=== PATIENT | female | born 1980 | race Caucasian/White ===

== ENCOUNTER 2017-04-28 18:25 | Inpatient (IN) | payer OTHER ==
[~2017-04-28] VITALS: Ht 160 cm; Wt 66.2 kg
[2017-04-28 20:45] VITALS: Ht 160 cm; Wt 66.2 kg
[2017-04-28 21:04] VITALS: BP 119/59; RESP 18
[2017-04-28] MEDS: HYDROCODONE/APAP (5/325) TAB PO PRN (21:21)
[2017-04-28] MEDS: SOD CHLORIDE 0.9% 1,000 ML IV SCH (21:22)
[2017-04-28] MEDS: CEFTRIAXONE 1 GM/50 ML (PMX) 50 ML IVPB SCH (21:22)
[2017-04-28 22:52] VITALS: PULSE 116
[2017-04-28] MEDS: ACETAMINOPHEN 325 MG TAB PO PRN (23:18)
[2017-04-29 02:46] VITALS: BP 99/54; RESP 18
[2017-04-29] MEDS: HYDROCODONE/APAP (5/325) TAB PO PRN ×2 (03:04→11:02)
[2017-04-29] MEDS: PANTOPRAZOLE 40 MG INJ IV SCH (05:19)
[2017-04-29 06:54] LABS: BASOPHILS % 0.1 % (0.0-2.0); EOSINOPHILS % 0.2 % (0.0-7.0); HEMOGLOBIN 10.6 g/dl (12.0-16.0); LYMPHOCYTES # 2.4 10^3/ul (0.8-2.9); LYMPHOCYTES % 23.3 % (15.0-51.0); MEAN CORPUSCULAR HEMOGLOBIN 30.9 pg (29.0-33.0); MEAN CORPUSCULAR HGB CONC 33.1 g/dl (32.0-37.0); MEAN CORPUSCULAR VOLUME 93.3 fl (82.0-101.0); MEAN PLATELET VOLUME 9.2 fl (7.4-10.4); NEUTROPHIL # 6.8 10^3/ul (1.6-7.5); NEUTROPHILS % 66.1 % (39.0-77.0); PLATELET COUNT 470 10^3/UL (140-415); RED BLOOD COUNT 3.43 10^6/ul (4.20-5.40); RED CELL DISTRIBUTION WIDTH 13.2 % (11.5-14.5); WHITE BLOOD COUNT 10.3 10^3/ul (4.8-10.8)
[2017-04-29 07:25] LABS: CREATININE 0.49 mg/dl (0.44-1.00); POTASSIUM 4.1 mmol/L (3.5-5.1)
[2017-04-29 07:30] VITALS: BP 98/52; RESP 18
[2017-04-29] MEDS: ACETAMINOPHEN 325 MG TAB PO PRN ×2 (07:43→16:03)
[2017-04-29 09:43] VITALS: PULSE 113
--- NOTE | 2017-04-29 09:48 | HP ---
Date/Time of Note Date/Time of Note DATE: 04/29/17 TIME: 09:35 Assessment/Plan VTE Prophylaxis VTE Prophylaxis Intervention: ambulation Lines/Catheters IV Catheter Type (from Nrs): Peripheral IV Assessment/Plan Chief Complaint/Hosp Course 1. Complex thyroid mass: left thyroid lobe with 3.6x2.2x3.3 cm mass, s/p biopsy on 04/15/2017 2. Thyrotoxicosis. T4 2.13, TSH below 0.01 3. neck pain 4. tachycardia Problems: Assessment/Plan 1. Pain control 2. Sepsis protocol was obtained in [facility], blood culture drawn, but not available. ordered. lactic acid ordered for tomorrow 3. Obtain thyroid biopsy results HPI/ROS Admit Date/Time Admit Date/Time Apr 28, 2017 at 20:18 Hx of Present Illness pt was transferred to [facility] on 04/28/2017 from [facility]. Per medical record from [facility] patient showed up on 04/28 17 with c/o swelling of left lower anterior neck starting 04/26. She reported pain 6/10 in rest, able to move her neck. Reported SOB and difficulty swallowing. Pt reported fever and chills. Positive for Thyroid biopsy on 04/15/2017. Blood culture and US neck was obtained ROS Constitutional: chills Eyes: no complaints ENT: dysphagia Respiratory: cough, no complaints, other, pain, pleuritic pain, shortness of breath (yesterday in ER), sputum, wheezing Cardiovascular: no complaints Gastrointestinal: constipation, no complaints, No blood, No decreased appetite, No diarrhea, No flatus, No nausea, No other , No pain, No passing stool, No vomiting Genitourinary: no complaints Musculoskeletal: no complaints Skin: no complaints Lymphatic: no complaints PMH/Family/Social Past Medical History Past Surgical History Past Surgical Hx: other (C section, Thyroid biopsy, tracheostomy tube placement in infancy) Family History Significant Family History: no pertinent family hx Social History Alcohol Use: occasionally Smoking Status: Never smoker Drug Use: none Exam/Review of Systems Vital Signs Vitals Vital Signs Date Time Temp Pulse Resp B/P Pulse Ox O2 Delivery O2 Flow Rate FiO2 04/29/17 07:30 100.9 109 18 98/52 96 Intake and Output 04/28/17 04/28/17 04/29/17 15:00 23:00 07:00 Intake Total 50 ml 1205 ml Balance 50 ml 1205 ml Exam Constitutional: alert, oriented Psych: no complaints Head: normocephalic Eyes: nl conjunctiva ENMT: nl external ears & nose, nl lips & teeth, nl nasal mucosa & septum Neck: jvd, masses, nuchal rigidity, thyromegaly Respiratory: clear to auscultation Cardiovascular: regular rate and rhythm Gastrointestinal: soft Labs Result Diagram: 04/29/1754604/29/17546 Medications Medications Current Medications Sodium Chloride (NS) 1,000 ml @ 75 mls/hr [id number] IV Last administered on 04/28 21:22; Admin Dose 75 MLS/HR; Start 04/28/17 at 21:00 Pantoprazole (Protonix Iv) 40 mg DAILY@06 IV Last administered on 04/29/17 05: 19; Admin Dose 40 MG; Start 04/29/17 at 06:00 Acetaminophen (Tylenol Tab) 650 mg Q6H PRN PO PAIN AND OR ELEVATED TEMP Last administered on 04/29/17 07:43; Admin Dose 650 MG; Start 04/28/17 at 21:00 Acetaminophen/ Hydrocodone Bitart 1 tab 1 tab Q6H PRN PO PAIN Last administered on 04/29/17 03:04; Admin Dose 1 TAB; Start 04/28/17 at 21:00 Ceftriaxone Sodium (Rocephin) 50 ml @ 100 mls/hr Q24H IVPB Last administered on 04/28/17 21:22; Admin Dose 100 MLS/HR; Start 04/28/17 at 21:00 JOHN CUNNINGHAM Apr 29, 2017 09:46
[2017-04-29] MEDS: SOD CHLORIDE 0.9% 1,000 ML IV SCH ×2 (10:52→23:40)
[2017-04-29] MEDS ORDERED: METH10TA5 PO (12:22)
[2017-04-29] MEDS: ONDANSETRON 4 MG INJ IV PRN ×2 (13:18→19:14)
[2017-04-29] MEDS: morphine 2 MG INJ IV PRN ×3 (13:18→21:49)
[2017-04-29 14:09] VITALS: BP_SYST 110; BP_SYST 123; BP_DIAS 60; BP_DIAS 62; RESP 16; RESP 18
--- NOTE | 2017-04-29 19:36 | CONS ---
Date/Time of Note Date/Time of Note DATE: 04/29/17 TIME: 19:36 Assessment/Plan Assessment/Plan Chief Complaint/Hosp Course 1. Complex thyroid lesion (mass vs hematoma vs other - left 3.6x2.2x3.3 cm), s/ p biopsy on 04/15/2017 -obtain path -ct with contrast -ent consult 2. Thyrotoxicosis. T4 2.13, TSH below 0.01 -endocrine optimization and treatment -fluids -pain control -anti-inflammatory 3. Neck pain, dysphagia, sob ? 2nd #1 -as above 4. Tachycardia 2nd above ? infection -as above -abx 5. Anemia -monitor Thank you very much for consulting me in this patient's care, Problems: Consultation Date/Type/Reason Admit Date/Time Apr 28, 2017 at 20:18 Date of Consultation: Apr 29, 2017 Type of Consultation: Gen Surgical Reason for Consultation Thyroid ? hematoma s/p bx Dysphagia Referring Provider: THAO ARREDONDO MD Hx of Present Illness Tomeka Kim is a 37yo female who had a thyroid fna on 04/20 and subsequently developed a swelling at the biopsy site with some dysphagia and min sob. She reported to [facility] and was subsequently transferred here due to insurance capitation. She reports fevers & chills. No cp. No csz, rash, nausea, vomiting, bloating, blood per mouth or rectum. No dysuria. No change in bowel habits. No cobb/dizziness/visual or neuro changes. Surgical consult is obtained for further evaluation and treatment. Eyes: no complaints ENT: dysphagia, pain, sore throat, No congestion, No discharge Respiratory: cough, no complaints, other, pain, pleuritic pain, shortness of breath (yesterday in ER), sputum, wheezing Cardiovascular: no complaints Gastrointestinal: constipation, no complaints, No blood, No decreased appetite, No diarrhea, No flatus, No nausea, No other , No pain, No passing stool, No vomiting Genitourinary: no complaints Musculoskeletal: no complaints Skin: no complaints Neurologic: no complaints Endocrine: no complaints Lymphatic: no complaints Psychological: no complaints Immunologic: no complaints Past Medical History Thyroid nodule Thyroiditis/thyrotoxicosis Fevers Tachycardia Respiratory compromise in childhood Dysphagia Shortness of breath Anemia Past Surgical History C section Thyroid biopsy 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 Family History Significant Family History: no pertinent family hx Social History Alcohol Use: occasionally Smoking Status: Never smoker Drug Use: none Exam/Review of Systems Vital Signs Vitals Vital Signs Date Time Temp Pulse Resp B/P Pulse Ox O2 Delivery O2 Flow Rate FiO2 04/29/17 14:09 97.9 117 18 110/62 99 04/29/17 09:43 Room Air Intake and Output 04/28/17 04/28/17 04/29/17 15:00 23:00 07:00 Intake Total 50 ml 1205 ml Balance 50 ml 1205 ml Exam Constitutional: alert, oriented, No distress Psych: anxiety Head: atraumatic, normocephalic, No hematomas, No lacerations Eyes: EOMI, PERRL, nl conjunctiva, No icteric ENMT: mucosa pink and moist, nl external ears & nose, nl lips & teeth Neck: jvd, supple, thyromegaly (on left with nodule/lesion) Respiratory: normal air movement, No congested cough, No labored breathing, No wheezing Cardiovascular: No edema, No regular rate and rhythm Gastrointestinal: non-tender, soft, No distended, No rebound or guarding Musculoskeletal: nl extremities to inspection, No joint tenderness Extremities: normal pulses, No calf tenderness, No cyanosis, No edema Neurological: nl mental status, nl speech, nl strength, No confused Skin: No diaphoresis, No ecchymosis, No laceration, No rash or lesions Lymph: nl lymph nodes, nontender Results Result Diagram: 04/29/17 0547 04/29/17 0547 Results 24 hrs Laboratory Tests Test 04/29/17 05:47 White Blood Count 10.3 Red Blood Count 3.43 L Hemoglobin 10.6 L Hematocrit 32.0 L Mean Corpuscular Volume 93.3 Mean Corpuscular Hemoglobin 30.9 Mean Corpuscular Hemoglobin Concent 33.1 Red Cell Distribution Width 13.2 Platelet Count 470 H Mean Platelet Volume 9.2 Neutrophils % 66.1 Lymphocytes % 23.3 Monocytes % 10.0 Eosinophils % 0.2 Basophils % 0.1 Nucleated Red Blood Cells % 0.0 Neutrophils # 6.8 Lymphocytes # 2.4 Monocytes # 1.0 H Eosinophils # 0.0 Basophils # 0.0 Nucleated Red Blood Cells # 0.0 Sodium Level 138 Potassium Level 4.1 Chloride Level 108 Carbon Dioxide Level 23 Anion Gap 11 Blood Urea Nitrogen 6 L Creatinine 0.49 Glucose Level 127 Calcium Level 9.0 Medications Medications Current Medications Sodium Chloride (NS) 1,000 ml @ 75 mls/hr [id number] IV Last administered on 04/29 10:52; Admin Dose 75 MLS/HR; Start 04/28/17 at 21:00 Pantoprazole (Protonix Iv) 40 mg DAILY@06 IV Last administered on 04/29/17 05: 19; Admin Dose 40 MG; Start 04/29/17 at 06:00 Acetaminophen (Tylenol Tab) 650 mg Q6H PRN PO PAIN AND OR ELEVATED TEMP Last administered on 04/29/17 16:03; Admin Dose 650 MG; Start 04/28/17 at 21:00 Acetaminophen/ Hydrocodone Bitart 1 tab 1 tab Q6H PRN PO PAIN Last administered on 04/29/17 11:02; Admin Dose 1 TAB; Start 04/28/17 at 21:00 Ceftriaxone Sodium (Rocephin) 50 ml @ 100 mls/hr Q24H IVPB Last administered on 04/28/17 21:22; Admin Dose 100 MLS/HR; Start 04/28/17 at 21:00 Ondansetron HCl (Zofran Inj) 4 mg Q6H PRN IV NAUSEA AND/OR VOMITING Last administered on 04/29/17 19:14; Admin Dose 4 MG; Start 04/29/17 at 13:30 Morphine Sulfate (morphine) 2 mg Q4H PRN IV PAIN Last administered on 17:47; Admin Dose 2 MG; Start 04/29/17 at 13:30 Methimazole (Tapazole) 10 mg DAILY@21 PO ; Start 04/29/17 at 21:00 YASMANI HERNANDEZ MD Apr 29, 2017 19:36
[2017-04-29 20:32] VITALS: BP 111/57; RESP 18
[2017-04-29] MEDS: CEFTRIAXONE 1 GM/50 ML (PMX) 50 ML IVPB SCH (21:24)
[2017-04-29] MEDS: METHIMAZOLE 5 MG TAB PO SCH (21:24)
[2017-04-29] MEDS: ZOLPIDEM 5 MG TAB PO PRN (23:30)
[2017-04-30] MEDS: ACETAMINOPHEN 325 MG TAB PO PRN ×3 (00:37→14:15)
[2017-04-30] MEDS: SOD CHLORIDE 0.9% 1,000 ML IV SCH ×2 (00:39→17:50)
[2017-04-30] MEDS: PANTOPRAZOLE 40 MG INJ IV SCH (05:01)
[2017-04-30] MEDS: morphine 2 MG INJ IV PRN (06:12)
[2017-04-30] MEDS: ONDANSETRON 4 MG INJ IV PRN (06:12)
[2017-04-30 06:29] LABS: BASOPHILS % 0.2 % (0.0-2.0); EOSINOPHILS % 0.5 % (0.0-7.0); HEMATOCRIT 31.7 % (37.0-47.0); HEMOGLOBIN 10.5 g/dl (12.0-16.0); LYMPHOCYTES # 2.4 10^3/ul (0.8-2.9); LYMPHOCYTES % 27.8 % (15.0-51.0); MEAN CORPUSCULAR HEMOGLOBIN 31.1 pg (29.0-33.0); MEAN CORPUSCULAR HGB CONC 33.1 g/dl (32.0-37.0); MEAN CORPUSCULAR VOLUME 93.8 fl (82.0-101.0); MEAN PLATELET VOLUME 9.1 fl (7.4-10.4); MONOCYTES % 11.4 % (0.0-11.0); NEUTROPHIL # 5.2 10^3/ul (1.6-7.5); NEUTROPHILS % 59.8 % (39.0-77.0); PLATELET COUNT 505 10^3/UL (140-415); RED BLOOD COUNT 3.38 10^6/ul (4.20-5.40); RED CELL DISTRIBUTION WIDTH 12.9 % (11.5-14.5); WHITE BLOOD COUNT 8.7 10^3/ul (4.8-10.8)
[2017-04-30 07:09] LABS: CALCIUM 9.6 mg/dl (8.4-10.2); CREATININE 0.52 mg/dl (0.44-1.00); POTASSIUM 4.9 mmol/L (3.5-5.1)
[2017-04-30 07:26] LABS: T3 UPTAKE 48.4 % (23.5-40.5)
[2017-04-30 08:15] VITALS: BP 119/60; RESP 20
--- NOTE | 2017-04-30 12:13 | PN ---
Date/Time of Note Date/Time of Note DATE: 04/30/17 TIME: 12:10 Assessment/Plan VTE Prophylaxis VTE Prophylaxis Intervention: ambulation Lines/Catheters IV Catheter Type (from Nrs): Peripheral IV Urinary Cath still in place: No Assessment/Plan Chief Complaint/Hosp Course 1. Complex thyroid mass: left thyroid lobe with 3.6x2.2x3.3 cm mass, s/p biopsy on 04/15/2017 2. Thyrotoxicosis. T4 2.13, TSH below 0.01 3. neck pain 4. tachycardia Problems: Assessment/Plan 1. Continue pain control 2. Med records were requested to find the pathology of thyroid mass 3. Antithyroid meds are started Subjective 24 Hr Interval Summary Free Text/Dictation pt reported no change in pain in neck ENT: pain (02/21) Exam/Review of Systems Vital Signs Vitals Vital Signs Date Time Temp Pulse Resp B/P Pulse Ox O2 Delivery O2 Flow Rate FiO2 04/30/17 08:15 98.0 109 20 119/60 98 04/29/17 09:43 Room Air Intake and Output 04/29/17 04/29/17 04/30/17 15:00 23:00 07:00 Intake Total 450 ml 1325 ml 1980 ml Balance 450 ml 1325 ml 1980 ml Exam Constitutional: alert, oriented Neck: thyromegaly Respiratory: clear to auscultation Cardiovascular: regular rate and rhythm Results Result Diagram: 04/30/17 0558 04/30/17 0558 Results 24 hrs Laboratory Tests Test 04/30/17 05:58 White Blood Count 8.7 Red Blood Count 3.38 L Hemoglobin 10.5 L Hematocrit 31.7 L Mean Corpuscular Volume 93.8 Mean Corpuscular Hemoglobin 31.1 Mean Corpuscular Hemoglobin Concent 33.1 Red Cell Distribution Width 12.9 Platelet Count 505 H Mean Platelet Volume 9.1 Neutrophils % 59.8 Lymphocytes % 27.8 Monocytes % 11.4 H Eosinophils % 0.5 Basophils % 0.2 Nucleated Red Blood Cells % 0.0 Neutrophils # 5.2 Lymphocytes # 2.4 Monocytes # 1.0 H Eosinophils # 0.0 Basophils # 0.0 Nucleated Red Blood Cells # 0.0 Sodium Level 138 Potassium Level 4.9 Chloride Level 108 Carbon Dioxide Level 24 Anion Gap 11 Blood Urea Nitrogen 8 Creatinine 0.52 Glucose Level 118 Lactic Acid Level 1.4 Calcium Level 9.6 Free Thyroxine Index 6.05 H Thyroxine (T4) 12.5 H Triiodothyronine (T3) Uptake 48.4 H Medications Medications Current Medications Sodium Chloride (NS) 1,000 ml @ 75 mls/hr [id number] IV Last administered on 04/30 00:39; Admin Dose 75 MLS/HR; Start 04/28/17 at 21:00 Pantoprazole (Protonix Iv) 40 mg DAILY@06 IV Last administered on 04/30/17 05: 01; Admin Dose 40 MG; Start 04/29/17 at 06:00 Acetaminophen (Tylenol Tab) 650 mg Q6H PRN PO PAIN AND OR ELEVATED TEMP Last administered on 04/30/17 08:05; Admin Dose 650 MG; Start 04/28/17 at 21:00 Acetaminophen/ Hydrocodone Bitart 1 tab 1 tab Q6H PRN PO PAIN Last administered on 04/29/17 11:02; Admin Dose 1 TAB; Start 04/28/17 at 21:00 Ceftriaxone Sodium (Rocephin) 50 ml @ 100 mls/hr Q24H IVPB Last administered on 04/29/17 21:24; Admin Dose 100 MLS/HR; Start 04/28/17 at 21:00 Ondansetron HCl (Zofran Inj) 4 mg Q6H PRN IV NAUSEA AND/OR VOMITING Last administered on 04/30/17 06:12; Admin Dose 4 MG; Start 04/29/17 at 13:30 Methimazole (Tapazole) 10 mg DAILY@21 PO Last administered on 04/29/17 21:24; Admin Dose 10 MG; Start 04/29/17 at 21:00 Zolpidem Tartrate (Ambien) 5 mg HS PRN PO INSOMNIA Last administered on 23:30; Admin Dose 5 MG; Start 04/29/17 at 23:30 Hydromorphone HCl (Dilaudid) 0.5 mg Q4H PRN IV PAIN; Start 04/30/17 at 11:30 Metoclopramide HCl (Reglan) 10 mg Q8H PRN IV NAUSEA AND/OR VOMITING; Start at 11:30 JOHN CUNNINGHAM Apr 30, 2017 12:13
[2017-04-30] MEDS: HYDROmorphONE 1 MG/ML SYG IV PRN ×3 (12:23→20:39)
[2017-04-30 14:00] VITALS: BP 116/63; RESP 20
--- NOTE | 2017-04-30 14:04 | PN ---
Date/Time of Note Date/Time of Note DATE: 04/30/17 TIME: 14:02 Assessment/Plan Lines/Catheters IV Catheter Type (from [facility]): Peripheral IV Tristan in Place (from [facility]): No Assessment/Plan Chief Complaint/Hosp Course 1. Complex thyroid lesion (mass vs hematoma vs other - left 3.6x2.2x3.3 cm), s/ p biopsy on 04/15/2017 -obtain path -ct with contrast pending -ent consult 2. Thyrotoxicosis. T4 2.13, TSH below 0.01 -endocrine optimization and treatment -fluids -pain control -anti-inflammatory 3. Neck pain, dysphagia, sob ? 2nd #1 -as above 4. Tachycardia 2nd above ? infection -as above -abx 5. Anemia -monitor Thank you, Problems: Subjective 24 Hr Interval Summary Some dysphagia and min sob. Fevers & chills improving. No cp. No sz, rash, nausea, vomiting, bloating, blood per mouth or rectum. No dysuria. No change in bowel habits. No cobb/dizziness/visual or neuro changes. Exam/Review of Systems Vital Signs Vitals Vital Signs Date Time Temp Pulse Resp B/P Pulse Ox O2 Delivery O2 Flow Rate FiO2 05/01/17 07:45 98.0 91 16 106/59 97 04/29/17 09:43 Room Air Intake and Output 04/30/17 04/30/17 05/01/17 15:00 23:00 07:00 Intake Total 1875 ml 1550 ml Balance 1875 ml 1550 ml Exam Free Text/Dictation Constitutional: alert, oriented, No distress Psych: anxious Head: atraumatic, normocephalic, No hematomas, No lacerations Eyes: EOMI, PERRL, nl conjunctiva, No icteric ENMT: mucosa pink and moist, nl external ears & nose, nl lips & teeth Neck: jvd, supple, thyromegaly (on left with nodule/lesion) Respiratory: normal air movement, No congested cough, No labored breathing, No wheezing Cardiovascular: No edema, No regular rate and rhythm Gastrointestinal: non-tender, soft, No distended, No rebound or guarding Musculoskeletal: nl extremities to inspection, No joint tenderness Extremities: normal pulses, No calf tenderness, No cyanosis, No edema Neurological: nl mental status, nl speech, nl strength, No confused Skin: No diaphoresis, No ecchymosis, No laceration, No rash or lesions Lymph: nl lymph nodes, nontender Results Result Diagram: 05/01/17 0516 04/30/17 0558 YASMANI HERNANDEZ MD Apr 30, 2017 14:04
[2017-04-30] MEDS ORDERED: IOHEXOL 300MG/ML 150 ML BTL ONE (16:46)
[2017-04-30] MEDS ORDERED: SOD CHLORIDE 0.9% 100 ML ONE (16:46)
[2017-04-30] MEDS: METOCLOPRAMIDE 10 MG INJ IV PRN (18:26)
[2017-04-30 20:00] VITALS: BP 106/58; RESP 18
[2017-04-30] MEDS: CEFTRIAXONE 1 GM/50 ML (PMX) 50 ML IVPB SCH (20:38)
[2017-04-30] MEDS: METHIMAZOLE 5 MG TAB PO SCH (20:39)
[2017-04-30] MEDS: ZOLPIDEM 5 MG TAB PO PRN (21:55)
--- NOTE | 2017-05-01 00:46 | RADRPT ---
PROCEDURE: CT soft tissue neck with contrast CLINICAL INDICATION: Neck mass. Status post thyroid biopsy TECHNIQUE: A CT of the neck was performed utilizing axial sections from the from the thoracic inle t through the skull base with contrast. Coronal and sagittal images were also reformatted. 80 cc of Omnipaque-300 intravenous contrast was administered. One or more of the following dose reduction saundra hniques were used: Automated exposure control, adjustment of the mA and/or kV according to patient s ize, use of iterative reconstruction technique. The exam CTDI vol = 9.49 mGy and DLP = 241.47 mGy-cm. COMPARISON: None available FINDINGS: Visualized intracranial structures and skull base: The included portions of the cerebral hemispheres and posterior fossa are unremarkable with the fourth ventricle midline. trace mucosal thickening o f the maxillary sinus floors is present. The remaining included paranasal sinuses and mastoid air ce lls are clear Nasopharynx, oropharynx and tongue base: Prominent adenoidal tissue in the nasopharynx is present. T he tonsils and parapharyngeal fat planes are within limits of normal. No nasopharyngeal mass is pre sent. The tongue base is unremarkable. Some dental amalgam artifact limits fine evaluation of thes e regions. Parotid and wind up operator spaces: The glands are normal in size and homogeneous in attenuation without mass or inflammation. The muscles of mastication and temporomandibular joints are normal bilaterall y. Carotid spaces: Mild reactive type jugulodigastric chain lymphadenitis bilaterally slightly greater on the left is present but none of the lymph nodes meet the criteria for adenopathy. No masses or in flammation demonstrated. The vasculature is unremarkable bilaterally. Submandibular and submental spaces: The glands and lymph nodes are within limits of normal. There i s no evidence of calcification. The sublingual space is unremarkable. Posterior triangles: Within the limits of normal bilaterally without adenopathy, mass or inflammatio n. Larynx and infraglottic airway: The epiglottis, aryepiglottic folds, vocal cords and piriform sinus es are unremarkable. No intrinsic tracheal abnormality is demonstrated. Visceral space: Complex cystic septated left thyroid lobe nodule is estimated at for 0.2-0.9 cm. Thi s causes extrinsic effect upon the trachea with deviation of the trachea to the right of midline by 8 mm. There is no contrast extravasation to suggest active bleeding and no hematoma within the visce ral space is present. The cervical esophagus is unremarkable. Supraclavicular fossae: No evidence of adenopathy or mass lesion. Visualized thorax: No evidence of pulmonary infiltrates or superior mediastinal abnormality. Cervical spine: No evidence of fracture, lytic or blastic lesion. The reversal of the normal cervic al lordosis may be from muscle spasm. RPTAT:HJJR IMPRESSION: 1. Left thyroid lobe nodule estimated at 4 cm in greatest dimension presumably the abnormality that underwent recent biopsy according to the provided history but there is no evidence of active bleedin g or hematoma. 2. Extrinsic effect upon the trachea by the left thyroid lobe nodule causes deviation to the right of midline by approximately 8 mm. 3. No additional neck masses are present. There are subtle sub centimeter reactive type of jugulodi gastric chain lymph nodes bilaterally. 4. Incidental prominent adenoidal soft tissues of the nasopharynx possibly adenitis. 5. Minimal chronic-appearing maxillary sinus mucosal thickening. Physician Jb Date Time Electronically viewed and signed by Physician Jb on 05/01/2017 00:46 /
[2017-05-01 02:00] VITALS: BP 104/56; RESP 19
[2017-05-01] MEDS: SOD CHLORIDE 0.9% 1,000 ML IV SCH ×3 (02:12→18:44)
[2017-05-01] MEDS: HYDROmorphONE 1 MG/ML SYG IV PRN ×5 (02:14→20:14)
[2017-05-01] MEDS: ACETAMINOPHEN 325 MG TAB PO PRN ×2 (05:34→12:16)
[2017-05-01] MEDS: PANTOPRAZOLE (EC) 40 MG TAB PO SCH (05:35)
[2017-05-01 06:16] LABS: BASOPHILS % 0.2 % (0.0-2.0); EOSINOPHILS # 0.1 10^3/ul (0.0-0.5); EOSINOPHILS % 0.6 % (0.0-7.0); HEMATOCRIT 28.5 % (37.0-47.0); HEMOGLOBIN 9.3 g/dl (12.0-16.0); LYMPHOCYTES # 2.8 10^3/ul (0.8-2.9); LYMPHOCYTES % 33.8 % (15.0-51.0); MEAN CORPUSCULAR HEMOGLOBIN 30.1 pg (29.0-33.0); MEAN CORPUSCULAR HGB CONC 32.6 g/dl (32.0-37.0); MEAN CORPUSCULAR VOLUME 92.2 fl (82.0-101.0); MEAN PLATELET VOLUME 9.3 fl (7.4-10.4); MONOCYTE # 0.6 10^3/ul (0.3-0.9); MONOCYTES % 7.3 % (0.0-11.0); NEUTROPHIL # 4.8 10^3/ul (1.6-7.5); NEUTROPHILS % 57.9 % (39.0-77.0); PLATELET COUNT 510 10^3/UL (140-415); RED BLOOD COUNT 3.09 10^6/ul (4.20-5.40); RED CELL DISTRIBUTION WIDTH 12.9 % (11.5-14.5); WHITE BLOOD COUNT 8.4 10^3/ul (4.8-10.8)
[2017-05-01 07:45] VITALS: BP 106/59; RESP 16
[2017-05-01] MEDS ORDERED: METHIMAZOLE 5 MG TAB PO SCH (09:00)
[2017-05-01] MEDS ORDERED: PROPRANOLOL 10 MG TAB PO SCH (09:00)
[2017-05-01] MEDS: ONDANSETRON 4 MG INJ IV PRN (10:08)
[2017-05-01] MEDS: PROPRANOLOL 10 MG TAB PO SCH ×3 (12:15→20:14)
[2017-05-01] MEDS: METHIMAZOLE 5 MG TAB PO SCH (12:18)
--- NOTE | 2017-05-01 12:34 | CONS ---
Date/Time of Note Date/Time of Note DATE: 05/01/17 TIME: 12:24 Assessment/Plan Assessment/Plan Problems: (1) Thyrotoxicosis without thyroid storm Status: Acute Comment: Despite the presence of a thyroid nodule it is not proved positive that this is the etiology of the patient's thyrotoxicosis. In fact it is possibly more likely that the patient has Graves' disease superimposed on chronic thyroid nodule. The nodule likely could have been found by coincidence. It was inappropriate to perform an aspiration of this nodule without performing a nuclear scan of the patient's neck. However, we are we are. Etiology of thyrotoxicosis should be evaluated. Therefore I will check antibody levels to rule in Graves' disease. If they are negative it does not rule out Graves' disease. However, because the patient has received iodine for a CT scan I can no longer perform a nuclear scan of her thyroid to establish a true diagnosis. Therefore positive antibodies would be suggestive of Graves' disease and negative antibodies leave us without a diagnosis although they make toxic multinodular goiter a more likely diagnosis. Will continue methimazole 20 mg p.o. daily and propranolol 10 mg p.o. 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 Pain and fever and feeling of mass-effect possibly indicative of bleeding into the cyst or thyroid abscess. Patient is on empiric antibiotics. Will order ultrasound to rule in or rule out fluid pocket within nodule. If there is a fluid pocket it should be aspirated because if it is possible must be drained. Will add ibuprofen 600 mg every 6 to reduce pain and swelling Consultation Date/Type/Reason Admit Date/Time Apr 28, 2017 at 20:18 Date of Consultation: May 01, 2017 Type of Consultation: Endocrinology Reason for Consultation Painful thyroid nodule. Referring Provider: THAO ARREDONDO Hx of Present Illness 37-year-old female with a history of 30 pound weight loss leading up to a physical 2 months ago. At that time patient also complained to her doctor that she was trying to get and could not. PMD check hormone levels and found thyrotoxicosis. Referred patient for thyroid imaging which showed left lower lobe nodule. Patient saw site supervising technical operator who started her on antithyroid drugs and ordered fine-needle aspiration of nodule. This was done several days ago. 4 days ago patient developed acute pain, swelling, throat pressure, inability to swallow, and fevers at home. Came here to [facility] emergency room following a short stay at outside hospital emergency room. Labs confirmed thyrotoxicosis. CT of neck confirms 4 cm nodule left lower lobe. Endocrine consulted Constitutional: improved, no complaints Eyes: no complaints ENT: dysphagia, pain, sore throat, No congestion, No discharge Respiratory: cough, no complaints, other, pain, pleuritic pain, shortness of breath (yesterday in ER), sputum, wheezing Cardiovascular: no complaints Gastrointestinal: constipation, no complaints, No blood, No decreased appetite, No diarrhea, No flatus, No nausea, No other , No pain, No passing stool, No vomiting Genitourinary: no complaints Musculoskeletal: no complaints Skin: no complaints Neurologic: no complaints Endocrine: other (Weight loss) Lymphatic: no complaints Psychological: anxiety Immunologic: no complaints Past Medical History Medical History: no pertinent history Past Surgical History Past Surgical Hx: other (Tracheostomy, section) Family History Significant Family History: no pertinent family hx (Adopted) Social History In [facility], high school graduate, not working, , 1 child Alcohol Use: rarely Smoking Status: Former smoker (20 years 1 pack per day, quit 6 months ago with chantix) Drug Use: none Exam/Review of Systems Vital Signs Vitals VS - Last 72 Hours, by Label Date Time Temp Pulse Resp B/P Pulse Ox O2 Delivery O2 Flow Rate FiO2 05/01/17 07:45 98.0 91 16 106/59 97 05/01/17 02:00 98.5 99 19 104/56 98 04/30/17 20:00 97.6 100 18 106/58 99 04/30/17 14:00 98.4 70 20 116/63 99 04/30/17 08:15 98.0 109 20 119/60 98 04/29/17 20:32 98.1 107 18 111/57 98 04/29/17 14:09 97.9 117 18 110/62 99 04/29/17 09:43 99.0 113 98 Room Air 04/29/17 07:30 100.9 109 18 98/52 96 04/29/17 02:46 98.2 105 18 99/54 97 04/28/17 22:52 116 04/28/17 21:04 98.6 128 18 119/59 98 Vital Signs Date Time Temp Pulse Resp B/P Pulse Ox O2 Delivery O2 Flow Rate FiO2 05/01/17 07:45 98.0 91 16 106/59 97 04/29/17 09:43 Room Air Intake and Output 04/30/17 04/30/17 05/01/17 15:00 23:00 07:00 Intake Total 1875 ml 1550 ml Balance 1875 ml 1550 ml Exam Constitutional: alert, oriented, well developed Psych: nl mood/affect, no complaints Eyes: EOMI, PERRL, nl conjunctiva, nl lids, nl sclera ENMT: mucosa pink and moist, nl external ears & nose Neck: supple, thyromegaly (Palpable left lower lobe thyroid nodule. Tender to palpation.), No bruits, No non-tender Respiratory: clear to auscultation, normal air movement Cardiovascular: nl pulses, regular rate and rhythm, No edema, No murmurs/extra sounds, No rub Gastrointestinal: bowel sounds, nl liver, spleen, non-tender, soft, No mass, No rebound or guarding Musculoskeletal: nl extremities to inspection Extremities: normal pulses, No clubbing, No cyanosis, No edema Neurological: COTTON BAG SEWER II-XII intact, nl mental status, nl speech, nl strength, No other (No tremor) Results Result Diagram: 05/01/17 0516 04/30/17 0558 Results 24 hrs Laboratory Tests Test 05/01/17 05:16 White Blood Count 8.4 Red Blood Count 3.09 L Hemoglobin 9.3 L Hematocrit 28.5 L Mean Corpuscular Volume 92.2 Mean Corpuscular Hemoglobin 30.1 Mean Corpuscular Hemoglobin Concent 32.6 Red Cell Distribution Width 12.9 Platelet Count 510 H Mean Platelet Volume 9.3 Neutrophils % 57.9 Lymphocytes % 33.8 Monocytes % 7.3 Eosinophils % 0.6 Basophils % 0.2 Nucleated Red Blood Cells % 0.0 Neutrophils # 4.8 Lymphocytes # 2.8 Monocytes # 0.6 Eosinophils # 0.1 Basophils # 0.0 Nucleated Red Blood Cells # 0.0 Medications Medications Current Medications Sodium Chloride (NS) 1,000 ml @ 75 mls/hr [id number] IV Last administered on 05/01 05:35; Admin Dose 75 MLS/HR; Start 04/28/17 at 21:00 Acetaminophen (Tylenol Tab) 650 mg Q6H PRN PO PAIN AND OR ELEVATED TEMP Last administered on 05/01/17 05:34; Admin Dose 650 MG; Start 04/28/17 at 21:00 Acetaminophen/ Hydrocodone Bitart 1 tab 1 tab Q6H PRN PO PAIN Last administered on 04/29/17 11:02; Admin Dose 1 TAB; Start 04/28/17 at 21:00 Ceftriaxone Sodium (Rocephin) 50 ml @ 100 mls/hr Q24H IVPB Last administered on 04/30/17 20:38; Admin Dose 100 MLS/HR; Start 04/28/17 at 21:00 Ondansetron HCl (Zofran Inj) 4 mg Q6H PRN IV NAUSEA AND/OR VOMITING Last administered on 05/01/17 10:08; Admin Dose 4 MG; Start 04/29/17 at 13:30 Zolpidem Tartrate (Ambien) 5 mg HS PRN PO INSOMNIA Last administered on 21:55; Admin Dose 5 MG; Start 04/29/17 at 23:30 Hydromorphone HCl (Dilaudid) 0.5 mg Q4H PRN IV PAIN Last administered on 10:08; Admin Dose 0.5 MG; Start 04/30/17 at 11:30 Metoclopramide HCl (Reglan) 10 mg Q8H PRN IV NAUSEA AND/OR VOMITING Last administered on 04/30/17 18:26; Admin Dose 10 MG; Start 04/30/17 at 11:30 Pantoprazole (Protonix Tab) 40 mg DAILY@06 PO Last administered on 05/01/17 05 :35; Admin Dose 40 MG; Start 05/01/17 at 06:00 Methimazole (Tapazole) 20 mg DAILY PO ; Start 05/01/17 at 12:30 Propranolol HCl (Inderal) 10 mg QID PO ; Start 05/01/17 at 13:00 BRANDI HERNANDEZ MD May 01, 2017 12:34
[2017-05-01 14:17] VITALS: BP 102/58; RESP 16
--- NOTE | 2017-05-01 14:22 | PN ---
Date/Time of Note Date/Time of Note DATE: 05/01/17 TIME: 14:17 Assessment/Plan Lines/Catheters IV Catheter Type (from [facility]): Peripheral IV Tristan in Place (from [facility]): No Assessment/Plan Chief Complaint/Hosp Course 1. Complex thyroid lesion (left 3.6x2.2x3.3 cm), s/p biopsy on 04/15/2017. CT noted. Appreciate endocrine input. -ent consult 2. Thyrotoxicosis +/- Graves -endocrine optimization and treatment -fluids -pain control -anti-inflammatory 3. Neck pain, dysphagia, sob ? 2nd #1 -as above 4. Tachycardia 2nd above ? infection -as above -abx 5. Anemia -monitor Thank you, Problems: Subjective 24 Hr Interval Summary Appreciate Endocrine input. CT noted. Some dysphagia and min sob. Fevers & chills improved. No cp. No sz, rash, nausea, vomiting, bloating, blood per mouth or rectum. No dysuria. No change in bowel habits. No cobb/dizziness/ visual or neuro changes. Exam/Review of Systems Vital Signs Vitals Vital Signs Date Time Temp Pulse Resp B/P Pulse Ox O2 Delivery O2 Flow Rate FiO2 05/01/17 07:45 98.0 91 16 106/59 97 04/29/17 09:43 Room Air Intake and Output 04/30/17 04/30/17 05/01/17 15:00 23:00 07:00 Intake Total 1875 ml 1550 ml Balance 1875 ml 1550 ml Exam Free Text/Dictation Constitutional: alert, oriented, No distress Psych: anxious Head: atraumatic, normocephalic, No hematomas, No lacerations Eyes: EOMI, PERRL, nl conjunctiva, No icteric ENMT: mucosa pink and moist, nl external ears & nose, nl lips & teeth Neck: jvd, supple, thyromegaly (on left with nodule/lesion) Respiratory: normal air movement, No congested cough, No labored breathing, No wheezing Cardiovascular: No edema, No regular rate and rhythm Gastrointestinal: non-tender, soft, No distended, No rebound or guarding Musculoskeletal: nl extremities to inspection, No joint tenderness Extremities: normal pulses, No calf tenderness, No cyanosis, No edema Neurological: nl mental status, nl speech, nl strength, No confused Skin: No diaphoresis, No ecchymosis, No laceration, No rash or lesions Lymph: nl lymph nodes, nontender Results Result Diagram: 05/01/17 0516 04/30/17 0558 YASMANI HERNANDEZ MD May 01, 2017 14:22
[2017-05-01] MEDS: IBUPROFEN 600 MG TAB PO SCH ×2 (17:25→23:02)
--- NOTE | 2017-05-01 19:24 | PN ---
Date/Time of Note Date/Time of Note DATE: 05/01/17 TIME: 19:22 Assessment/Plan VTE Prophylaxis VTE Prophylaxis Intervention: other Lines/Catheters IV Catheter Type (from Nrs): Peripheral IV Urinary Cath still in place: No Assessment/Plan Chief Complaint/Hosp Course A/P THYROTOXICOSIS THYROID MASS S/P NECK MASS BIOPSY PLAN PER ENDOFOR NOW Problems: Subjective 24 Hr Interval Summary Respiratory: No shortness of breath Cardiovascular: no complaints Gastrointestinal: no complaints Exam/Review of Systems Vital Signs Vitals Vital Signs Date Time Temp Pulse Resp B/P Pulse Ox O2 Delivery O2 Flow Rate FiO2 05/01/17 14:17 98.3 86 16 102/58 97 04/29/17 09:43 Room Air Intake and Output 04/30/17 04/30/17 05/01/17 15:00 23:00 07:00 Intake Total 1875 ml 1550 ml Balance 1875 ml 1550 ml Exam Head: normocephalic Eyes: nl conjunctiva Neck: masses (_), supple Respiratory: clear to auscultation Cardiovascular: regular rate and rhythm Gastrointestinal: bowel sounds (+), soft Results Result Diagram: 05/01/17 0516 04/30/17 0558 Results 24 hrs Laboratory Tests Test 05/01/17 05:16 White Blood Count 8.4 Red Blood Count 3.09 L Hemoglobin 9.3 L Hematocrit 28.5 L Mean Corpuscular Volume 92.2 Mean Corpuscular Hemoglobin 30.1 Mean Corpuscular Hemoglobin Concent 32.6 Red Cell Distribution Width 12.9 Platelet Count 510 H Mean Platelet Volume 9.3 Neutrophils % 57.9 Lymphocytes % 33.8 Monocytes % 7.3 Eosinophils % 0.6 Basophils % 0.2 Nucleated Red Blood Cells % 0.0 Neutrophils # 4.8 Lymphocytes # 2.8 Monocytes # 0.6 Eosinophils # 0.1 Basophils # 0.0 Nucleated Red Blood Cells # 0.0 Medications Medications Current Medications Sodium Chloride (NS) 1,000 ml @ 75 mls/hr [id number] IV Last administered on 05/01 18:44; Admin Dose 75 MLS/HR; Start 04/28/17 at 21:00 Acetaminophen (Tylenol Tab) 650 mg Q6H PRN PO PAIN AND OR ELEVATED TEMP Last administered on 05/01/17 12:16; Admin Dose 650 MG; Start 04/28/17 at 21:00 Acetaminophen/ Hydrocodone Bitart 1 tab 1 tab Q6H PRN PO PAIN Last administered on 04/29/17 11:02; Admin Dose 1 TAB; Start 04/28/17 at 21:00 Ceftriaxone Sodium (Rocephin) 50 ml @ 100 mls/hr Q24H IVPB Last administered on 04/30/17 20:38; Admin Dose 100 MLS/HR; Start 04/28/17 at 21:00 Ondansetron HCl (Zofran Inj) 4 mg Q6H PRN IV NAUSEA AND/OR VOMITING Last administered on 05/01/17 10:08; Admin Dose 4 MG; Start 04/29/17 at 13:30 Zolpidem Tartrate (Ambien) 5 mg HS PRN PO INSOMNIA Last administered on 21:55; Admin Dose 5 MG; Start 04/29/17 at 23:30 Hydromorphone HCl (Dilaudid) 0.5 mg Q4H PRN IV PAIN Last administered on 16:04; Admin Dose 0.5 MG; Start 04/30/17 at 11:30 Metoclopramide HCl (Reglan) 10 mg Q8H PRN IV NAUSEA AND/OR VOMITING Last administered on 04/30/17 18:26; Admin Dose 10 MG; Start 04/30/17 at 11:30 Pantoprazole (Protonix Tab) 40 mg DAILY@06 PO Last administered on 05/01/17 05 :35; Admin Dose 40 MG; Start 05/01/17 at 06:00 Methimazole (Tapazole) 20 mg DAILY PO Last administered on 05/01/17 12:18; Admin Dose 20 MG; Start 05/01/17 at 12:30 Propranolol HCl (Inderal) 10 mg QID PO Last administered on 05/01/17 17:25; Admin Dose 10 MG; Start 05/01/17 at 13:00 Ibuprofen (Motrin) 600 mg Q6 PO Last administered on 05/01/17 17:25; Admin Dose 600 MG; Start 05/01/17 at 18:00 THAO ARREDONDO MD May 01, 2017 19:24
--- NOTE | 2017-05-01 19:30 | RADRPT ---
PROCEDURE: US Thyroid. CLINICAL INDICATION: Thyroid nodule. Palpable fullness. TECHNIQUE: Multiple sonographic images of the thyroid were obtained. Transverse and sagittal imagi ng of the gland and miki-thyroidal tissues was performed with a high frequency linear array transduc er. Color interrogation was performed as well. The images were reviewed on a PACS workstation. COMPARISON: No prior studies are available for comparison. FINDINGS: Thyroid Size: Right lobe: 4.5 x 1.9 x 1.8 cm Left lobe: 6.2 x 3.6 x 3.6 cm Appearance: Echogenicity: Normal Vascularity: Normal Right thyroid nodules: None Thyroid isthmus nodule: Nodule #1: Size: 0.7 x 0.4 cm Location: Portion of the isthmus, anteriorly. Composition: Solid. Echogenicity: Very hypoechoic. Shape: [id number]. Margin: Smooth. Echogenic foci: None. Left thyroid nodule: Nodule #1: Size: 3.4 x 3.0 x 4.8 cm Location: Mid. Echogenicity: Isoechoic. Shape: [id number]. Margin: Smooth. Echogenic foci: None. Additional: Adenopathy: None Soft tissues: Normal IMPRESSION: 1. Nodule in the isthmus measuring 0.7 x 0.4 cm. No further evaluation required. 2. Nodule in the left lobe measuring 3.4 x 3.0 x 4.8 cm. TI-RADS 2. No further evaluation is requi red. 3. Otherwise unremarkable study. RPTAT: PP TI-RADS 1: Benign, <2% malignancy risk: No FNA TI-RADS 2: Not suspicious, <2% malignancy risk: No FNA TI-RADS 3: Mildly suspicious, 5% malignancy risk: FNA if ? 2.5 cm TI-RADS 4: Moderately suspicious, 5-20% malignancy risk: FNA if ? 1.5 cm TI-RADS 5: Highly suspicious, >20% malignancy risk: FNA if ? 1.0 cm .Kash Cotter MD, Date Time Electronically viewed and signed by .Kash Cotter MD, on 05/01/2017 19:29 .R/
[2017-05-01] MEDS: CEFTRIAXONE 1 GM/50 ML (PMX) 50 ML IVPB SCH (20:14)
[2017-05-01 21:02] VITALS: BP 109/57; RESP 18
[2017-05-01] MEDS: METOCLOPRAMIDE 10 MG INJ IV PRN (23:02)
[2017-05-01] MEDS: ZOLPIDEM 5 MG TAB PO PRN (23:07)
[2017-05-02] MEDS: HYDROmorphONE 1 MG/ML SYG IV PRN ×6 (00:09→21:43)
[2017-05-02] MEDS: ACETAMINOPHEN 325 MG TAB PO PRN (02:13)
[2017-05-02 02:53] VITALS: BP 99/50; RESP 18
[2017-05-02] MEDS: PANTOPRAZOLE (EC) 40 MG TAB PO SCH (05:15)
[2017-05-02] MEDS: SOD CHLORIDE 0.9% 1,000 ML IV SCH ×2 (05:15→17:16)
[2017-05-02] MEDS: IBUPROFEN 600 MG TAB PO SCH ×3 (06:14→17:10)
[2017-05-02 08:00] VITALS: BP 135/67; RESP 18
[2017-05-02 08:19] VITALS: BP 135/67; RESP 18
[2017-05-02] MEDS: METHIMAZOLE 5 MG TAB PO SCH (08:43)
[2017-05-02] MEDS: ONDANSETRON 4 MG INJ IV PRN (08:43)
[2017-05-02] MEDS: PROPRANOLOL 10 MG TAB PO SCH ×4 (08:43→20:39)
--- NOTE | 2017-05-02 12:11 | PN ---
Date/Time of Note Date/Time of Note DATE: 05/02/17 TIME: 11:55 Assessment/Plan Lines/Catheters IV Catheter Type (from [facility]): Peripheral IV Tristan in Place (from [facility]): No Assessment/Plan Chief Complaint/Hosp Course 1. Complex thyroid lesion (left 3.6x2.2x3.3 cm), s/p biopsy on 04/15/2017. CT noted. Appreciate endocrine input. -per ent -await path 2. Thyrotoxicosis +/- Graves vs. multinodular goiter -endocrine optimization and treatment -fluids -pain control -anti-inflammatory 3. Neck pain, dysphagia 2nd #1: dysphagia improved -as above 4. Tachycardia 2nd above doubt infection: tachycardia improved, afebrile wbc nl -as above -abx 5. Anemia: no acute bleed -monitor and transfuse as needed Patient seen and examined in collaboration with Dr. Talat Chaparro. Thank you. Problems: Subjective 24 Hr Interval Summary Continues to have neck discomfort but pain minimally better. Able to swallow with min difficulty, no coughing. No c/o cp, palpitations, n/v/d/dysuria, discomfort, cobb, dizziness, fevers, chills. Exam/Review of Systems Vital Signs Vitals Vital Signs Date Time Temp Pulse Resp B/P Pulse Ox O2 Delivery O2 Flow Rate FiO2 05/02/17 08:19 97.6 84 18 135/67 98 04/29/17 09:43 Room Air Intake and Output 05/01/17 05/01/17 05/02/17 15:00 23:00 07:00 Intake Total 910 ml 1550 ml Balance 910 ml 1550 ml Exam Free Text/Dictation Constitutional: alert, oriented, No distress Psych: anxious Head: atraumatic, normocephalic, No hematomas, No lacerations Eyes: EOMI, PERRL, nl conjunctiva, No icteric ENMT: mucosa pink and moist, nl external ears & nose, nl lips & teeth Neck: jvd, supple, thyromegaly , tender Respiratory: normal air movement, No congested cough, No labored breathing, No wheezing Cardiovascular: No edema, No regular rate and rhythm Gastrointestinal: non-tender, soft, No distended, No rebound or guarding Musculoskeletal: nl extremities to inspection, No joint tenderness Extremities: normal pulses, No calf tenderness, No cyanosis, No edema Neurological: nl mental status, nl speech, nl strength, No confused Skin: No diaphoresis, No ecchymosis, No laceration, No rash or lesions Lymph: nl lymph nodes, nontender Results Result Diagram: 05/01/17 0516 04/30/17 0558 RAYMUNDO VARGAS NP May 02, 2017 12:06
[2017-05-02 14:45] VITALS: BP 137/73; RESP 18
--- NOTE | 2017-05-02 15:24 | PN ---
Date/Time of Note Date/Time of Note DATE: 05/02/17 TIME: 15:17 Assessment/Plan VTE Prophylaxis VTE Prophylaxis Intervention: LMWH Lines/Catheters IV Catheter Type (from Nrs): Peripheral IV Urinary Cath still in place: No Assessment/Plan Chief Complaint/Hosp Course 37 y/o with hief Complaint/Hosp Course # Complex thyroid lesion (left 3.6x2.2x3.3 cm), s/p biopsy on 04/15/2017. CT noted. Pending final path # . Thyrotoxicosis +/- Graves vs. multinodular goiter # Dysphagia secondary to Thyroid lesion # .Tachycardia secondary to thyrotoxicosis # Anemia: no acute bleed Recs - Pain control with Morphine/norco - Pending final biopsy results, spoke to center - c/w Propanolol and methimazole - Endo following - f/u final path - full liquid diet Problems: Subjective 24 Hr Interval Summary Free Text/Dictation Still complaining a lot of pain and dysphagia Exam/Review of Systems Vital Signs Vitals Vital Signs Date Time Temp Pulse Resp B/P Pulse Ox O2 Delivery O2 Flow Rate FiO2 05/02/17 14:45 98.1 92 18 137/73 99 04/29/17 09:43 Room Air Intake and Output 05/01/17 05/01/17 05/02/17 15:00 23:00 07:00 Intake Total 910 ml 1550 ml Balance 910 ml 1550 ml Exam Gen:awake and alert Neck:left neck swelling, tenderness CVS:Regular rate and rthym Abdomen:soft, non tender Ext : no edema Results Result Diagram: 05/01/17 0516 04/30/17 0558 Medications Medications Current Medications Sodium Chloride (NS) 1,000 ml @ 75 mls/hr [id number] IV Last administered on 05/02 05:15; Admin Dose 75 MLS/HR; Start 04/28/17 at 21:00 Acetaminophen (Tylenol Tab) 650 mg Q6H PRN PO PAIN AND OR ELEVATED TEMP Last administered on 05/02/17 02:13; Admin Dose 650 MG; Start 04/28/17 at 21:00 Acetaminophen/ Hydrocodone Bitart 1 tab 1 tab Q6H PRN PO PAIN Last administered on 04/29/17 11:02; Admin Dose 1 TAB; Start 04/28/17 at 21:00 Ceftriaxone Sodium (Rocephin) 50 ml @ 100 mls/hr Q24H IVPB Last administered on 05/01/17 20:14; Admin Dose 100 MLS/HR; Start 04/28/17 at 21:00 Ondansetron HCl (Zofran Inj) 4 mg Q6H PRN IV NAUSEA AND/OR VOMITING Last administered on 05/02/17 08:43; Admin Dose 4 MG; Start 04/29/17 at 13:30 Zolpidem Tartrate (Ambien) 5 mg HS PRN PO INSOMNIA Last administered on 23:07; Admin Dose 5 MG; Start 04/29/17 at 23:30 Hydromorphone HCl (Dilaudid) 0.5 mg Q4H PRN IV PAIN Last administered on 13:02; Admin Dose 0.5 MG; Start 04/30/17 at 11:30 Metoclopramide HCl (Reglan) 10 mg Q8H PRN IV NAUSEA AND/OR VOMITING Last administered on 05/01/17 23:02; Admin Dose 10 MG; Start 04/30/17 at 11:30 Pantoprazole (Protonix Tab) 40 mg DAILY@06 PO Last administered on 05/02/17 05 :15; Admin Dose 40 MG; Start 05/01/17 at 06:00 Methimazole (Tapazole) 20 mg DAILY PO Last administered on 05/02/17 08:43; Admin Dose 20 MG; Start 05/01/17 at 12:30 Propranolol HCl (Inderal) 10 mg QID PO Last administered on 05/02/17 13:02; Admin Dose 10 MG; Start 05/01/17 at 13:00 Ibuprofen (Motrin) 600 mg Q6 PO Last administered on 05/02/17 13:02; Admin Dose 600 MG; Start 05/01/17 at 18:00 Morphine Sulfate (morphine) 2 mg Q4H PRN IV PAIN LEVEL 7-10; Start 05/02/17 at 15:30; Status JAZIEL TYLER MD May 02, 2017 15:24
[2017-05-02] MEDS: morphine 2 MG INJ IV PRN ×2 (16:15→20:40)
--- NOTE | 2017-05-02 19:15 | CONS ---
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 Ultrasound indicates partially fluid- filled mass. May represent bleeding or pus. Recommend repeat aspiration of nodule only this time to extract fluid which is causing patient acute pain. If pus is present indicative of obvious thyroid abscess. No longer on antibiotics. Pain not controlled with ibuprofen and narcotic still required. May need to resume antibiotics once thyroid aspirated (2) Thyrotoxicosis without thyroid storm Status: Acute Comment: Heart rate controlled. Continue methimazole and propranolol. Qualifiers: Thyrotoxicosis type: unspecified thyrotoxicosis type Qualified Code: E05.90 - Thyrotoxicosis without thyroid storm, unspecified thyrotoxicosis type Consultation Date/Type/Reason Admit Date/Time Apr 28, 2017 at 20:18 Initial Consult Date 05/01/17 Type of Consultation: Endocrinology Reason for Consultation Thyrotoxicosis with painful nodule in thyroid status post biopsy Referring Provider: THAO ARREDONDO MD 24 HR Interval Summary Constitutional: no complaints Detailed Summary Respiratory: no complaints Cardiovascular: no complaints Gastrointestinal: no complaints Genitourinary: no complaints Musculoskeletal: neck pain (At site of thyroid) Neurologic: no complaints Exam/Review of Systems Vital Signs Vitals VS - Last 72 Hours, by Label Date Time Temp Pulse Resp B/P Pulse Ox O2 Delivery O2 Flow Rate FiO2 05/02/17 14:45 98.1 92 18 137/73 99 05/02/17 08:19 97.6 84 18 135/67 98 05/02/17 08:00 97.6 84 18 135/67 98 05/02/17 02:53 97.8 85 18 99/50 98 05/01/17 21:02 98.3 84 18 109/57 98 05/01/17 14:17 98.3 86 16 102/58 97 05/01/17 07:45 98.0 91 16 106/59 97 05/01/17 02:00 98.5 99 19 104/56 98 04/30/17 20:00 97.6 100 18 106/58 99 04/30/17 14:00 98.4 70 20 116/63 99 04/30/17 08:15 98.0 109 20 119/60 98 04/29/17 20:32 98.1 107 18 111/57 98 Vital Signs Date Time Temp Pulse Resp B/P Pulse Ox O2 Delivery O2 Flow Rate FiO2 05/02/17 14:45 98.1 92 18 137/73 99 04/29/17 09:43 Room Air Intake and Output 05/01/17 05/01/17 05/02/17 15:00 23:00 07:00 Intake Total 910 ml 1550 ml Balance 910 ml 1550 ml Exam Constitutional: alert, oriented, well developed Neck: thyromegaly (Tender mass left lower lobe) Respiratory: clear to auscultation, normal air movement Cardiovascular: nl pulses, regular rate and rhythm, No edema, No murmurs/extra sounds, No rub Gastrointestinal: bowel sounds, nl liver, spleen, non-tender, soft, No mass, No rebound or guarding Musculoskeletal: nl extremities to inspection Extremities: clubbing, cyanosis, edema Neurological: other (Fine tremor of hands) Results Result Diagram: 05/01/17 0516 04/30/17 0558 Medications Medications Current Medications Sodium Chloride (NS) 1,000 ml @ 75 mls/hr [id number] IV Last administered on 05/02 17:16; Admin Dose 75 MLS/HR; Start 04/28/17 at 21:00 Acetaminophen (Tylenol Tab) 650 mg Q6H PRN PO PAIN AND OR ELEVATED TEMP Last administered on 05/02/17 02:13; Admin Dose 650 MG; Start 04/28/17 at 21:00 Acetaminophen/ Hydrocodone Bitart 1 tab 1 tab Q6H PRN PO PAIN Last administered on 04/29/17 11:02; Admin Dose 1 TAB; Start 04/28/17 at 21:00 Ceftriaxone Sodium (Rocephin) 50 ml @ 100 mls/hr Q24H IVPB Last administered on 05/01/17 20:14; Admin Dose 100 MLS/HR; Start 04/28/17 at 21:00 Ondansetron HCl (Zofran Inj) 4 mg Q6H PRN IV NAUSEA AND/OR VOMITING Last administered on 05/02/17 08:43; Admin Dose 4 MG; Start 04/29/17 at 13:30 Zolpidem Tartrate (Ambien) 5 mg HS PRN PO INSOMNIA Last administered on 23:07; Admin Dose 5 MG; Start 04/29/17 at 23:30 Hydromorphone HCl (Dilaudid) 0.5 mg Q4H PRN IV PAIN Last administered on 17:10; Admin Dose 0.5 MG; Start 04/30/17 at 11:30 Metoclopramide HCl (Reglan) 10 mg Q8H PRN IV NAUSEA AND/OR VOMITING Last administered on 05/01/17 23:02; Admin Dose 10 MG; Start 04/30/17 at 11:30 Pantoprazole (Protonix Tab) 40 mg DAILY@06 PO Last administered on 05/02/17 05 :15; Admin Dose 40 MG; Start 05/01/17 at 06:00 Methimazole (Tapazole) 20 mg DAILY PO Last administered on 05/02/17 08:43; Admin Dose 20 MG; Start 05/01/17 at 12:30 Propranolol HCl (Inderal) 10 mg QID PO Last administered on 05/02/17 17:09; Admin Dose 10 MG; Start 05/01/17 at 13:00 Ibuprofen (Motrin) 600 mg Q6 PO Last administered on 05/02/17 17:10; Admin Dose 600 MG; Start 05/01/17 at 18:00 Morphine Sulfate (morphine) 2 mg Q4H PRN IV PAIN LEVEL 7-10 Last administered on 05/02/17 16:15; Admin Dose 2 MG; Start 05/02/17 at 15:30 BRANDI HERNANDEZ MD May 02, 2017 19:15
[2017-05-02 20:00] VITALS: BP 113/65; RESP 20
[2017-05-02] MEDS: CEFTRIAXONE 1 GM/50 ML (PMX) 50 ML IVPB SCH (20:39)
[2017-05-02] MEDS: ZOLPIDEM 5 MG TAB PO PRN (22:55)
[2017-05-03] MEDS: IBUPROFEN 600 MG TAB PO SCH ×5 (01:06→23:53)
[2017-05-03 02:00] VITALS: BP 120/61; RESP 19
[2017-05-03] MEDS: PANTOPRAZOLE (EC) 40 MG TAB PO SCH (05:42)
[2017-05-03] MEDS: HYDROmorphONE 1 MG/ML SYG IV PRN ×4 (05:51→21:22)
[2017-05-03 07:52] VITALS: BP 118/64; RESP 16
[2017-05-03] MEDS: METHIMAZOLE 5 MG TAB PO SCH (08:24)
[2017-05-03] MEDS: SOD CHLORIDE 0.9% 1,000 ML IV SCH ×2 (08:24→22:26)
[2017-05-03] MEDS: METOCLOPRAMIDE 10 MG INJ IV PRN (08:24)
[2017-05-03] MEDS: PROPRANOLOL 10 MG TAB PO SCH ×4 (08:25→21:21)
[2017-05-03] MEDS: morphine 2 MG INJ IV PRN ×2 (08:25→12:39)
[2017-05-03 13:02] LABS: THYROID MICROSOMAL ANTIBODY 1 IU/mL (<9)
--- NOTE | 2017-05-03 14:43 | PN ---
Date/Time of Note Date/Time of Note DATE: 05/03/17 TIME: 14:42 Assessment/Plan VTE Prophylaxis VTE Prophylaxis Intervention: LMWH Lines/Catheters IV Catheter Type (from Nrs): Peripheral IV Urinary Cath still in place: No Assessment/Plan Chief Complaint/Hosp Course 37 y/o with hief Complaint/Hosp Course # Complex thyroid lesion (left 3.6x2.2x3.3 cm), s/p biopsy on 04/15/2017. CT noted. Pending final path # . Thyrotoxicosis +/- Graves vs. multinodular goiter # Dysphagia secondary to Thyroid lesion # .Tachycardia secondary to thyrotoxicosis # Anemia: no acute bleed Recs - Pain control with Morphine/norco - Pending final biopsy results, spoke to center faxing today - c/w Propanolol and methimazole - Endo following - U/S guided aspiration of fluid today - full liquid diet Problems: Subjective 24 Hr Interval Summary Free Text/Dictation Pt still has persistent pain on left side of neck Exam/Review of Systems Vital Signs Vitals Vital Signs Date Time Temp Pulse Resp B/P Pulse Ox O2 Delivery O2 Flow Rate FiO2 05/03/17 07:52 97.6 86 16 118/64 98 04/29/17 09:43 Room Air Intake and Output 05/02/17 05/02/17 05/03/17 15:00 23:00 07:00 Intake Total 2170 ml 2062.5 ml Balance 2170 ml 2062.5 ml Exam Gen:awake and alert Neck:left neck swelling, tenderness CVS:Regular rate and rthym Abdomen:soft, non tender Ext : no edema Results Result Diagram: 05/01/17 0516 04/30/17 0558 Medications Medications Current Medications Sodium Chloride (NS) 1,000 ml @ 75 mls/hr [id number] IV Last administered on 05/03 08:24; Admin Dose 75 MLS/HR; Start 04/28/17 at 21:00 Acetaminophen (Tylenol Tab) 650 mg Q6H PRN PO PAIN AND OR ELEVATED TEMP Last administered on 05/02/17 02:13; Admin Dose 650 MG; Start 04/28/17 at 21:00 Acetaminophen/ Hydrocodone Bitart 1 tab 1 tab Q6H PRN PO PAIN Last administered on 04/29/17 11:02; Admin Dose 1 TAB; Start 04/28/17 at 21:00 Ceftriaxone Sodium (Rocephin) 50 ml @ 100 mls/hr Q24H IVPB Last administered on 05/02/17 20:39; Admin Dose 100 MLS/HR; Start 04/28/17 at 21:00 Ondansetron HCl (Zofran Inj) 4 mg Q6H PRN IV NAUSEA AND/OR VOMITING Last administered on 05/02/17 08:43; Admin Dose 4 MG; Start 04/29/17 at 13:30 Zolpidem Tartrate (Ambien) 5 mg HS PRN PO INSOMNIA Last administered on 22:55; Admin Dose 5 MG; Start 04/29/17 at 23:30 Metoclopramide HCl (Reglan) 10 mg Q8H PRN IV NAUSEA AND/OR VOMITING Last administered on 05/03/17 08:24; Admin Dose 10 MG; Start 04/30/17 at 11:30 Pantoprazole (Protonix Tab) 40 mg DAILY@06 PO Last administered on 05/03/17 05 :42; Admin Dose 40 MG; Start 05/01/17 at 06:00 Methimazole (Tapazole) 20 mg DAILY PO Last administered on 05/03/17 08:24; Admin Dose 20 MG; Start 05/01/17 at 12:30 Propranolol HCl (Inderal) 10 mg QID PO Last administered on 05/03/17 12:51; Admin Dose 10 MG; Start 05/01/17 at 13:00 Ibuprofen (Motrin) 600 mg Q6 PO Last administered on 05/03/17 12:51; Admin Dose 600 MG; Start 05/01/17 at 18:00 Morphine Sulfate (morphine) 2 mg Q4H PRN IV PAIN LEVEL 7-10 Last administered on 05/03/17 12:39; Admin Dose 2 MG; Start 05/02/17 at 15:30 Hydromorphone HCl (Dilaudid) 1 mg Q4H PRN IV PAIN; Start 05/03/17 at 14:30 JAZIEL LOCKHART MD May 03, 2017 14:43
[2017-05-03 14:46] VITALS: BP 126/61; RESP 16
[2017-05-03 14:58] LABS: INR 0.92; PROTIME 12.4 Sec (12.2-14.2)
[2017-05-03 14:59] LABS: PARTIAL THROMBOPLASTIN TIME 28.9 Sec (25.0-35.0)
--- NOTE | 2017-05-03 15:00 | PN ---
Date/Time of Note Date/Time of Note DATE: 05/03/17 TIME: 14:53 Assessment/Plan Lines/Catheters IV Catheter Type (from [facility]): Peripheral IV Tristan in Place (from [facility]): No Assessment/Plan Chief Complaint/Hosp Course 1. Complex thyroid lesion (left 3.6x2.2x3.3 cm), s/p biopsy on 04/15/2017. CT noted. Appreciate endocrine input. Path from 04/15: Hypercellular specimen, cannot exclude neoplasm -per ent- US guided aspiration today -?heme/onc 2. Thyrotoxicosis +/- Graves vs. multinodular goiter -endocrine optimization and treatment -fluids -pain control -anti-inflammatory 3. Neck pain, dysphagia 2nd #1: dysphagia improved -as above 4. Tachycardia 2nd above doubt infection: tachycardia improved, afebrile wbc nl -as above -abx 5. Anemia: no acute bleed -monitor and transfuse as needed Patient seen and examined in collaboration with Dr. Talat Chaparro. Thank you. Problems: Subjective 24 Hr Interval Summary Continues to have neck pain. Pending US guided drain today. No tachycardia, cp, palpitations, n/v/d/dysuria, fevers, chills, sob, congested cough. Exam/Review of Systems Vital Signs Vitals Vital Signs Date Time Temp Pulse Resp B/P Pulse Ox O2 Delivery O2 Flow Rate FiO2 05/03/17 14:46 98.2 82 16 126/61 98 04/29/17 09:43 Room Air Intake and Output 05/02/17 05/02/17 05/03/17 15:00 23:00 07:00 Intake Total 2170 ml 2062.5 ml Balance 2170 ml 2062.5 ml Exam Free Text/Dictation Constitutional: alert, oriented, No distress Psych: min anxious Head: atraumatic, normocephalic, No hematomas, No lacerations Eyes: EOMI, PERRL, nl conjunctiva, No icteric ENMT: mucosa pink and moist, nl external ears & nose, nl lips & teeth Neck: thyromegaly , tender Respiratory: normal air movement, No congested cough, No labored breathing, No wheezing Cardiovascular: No edema, No regular rate and rhythm Gastrointestinal: non-tender, soft, No distended, No rebound or guarding Musculoskeletal: nl extremities to inspection, No joint tenderness Extremities: normal pulses, No calf tenderness, No cyanosis, No edema Neurological: nl mental status, nl speech, nl strength, No confused Skin: No diaphoresis, No ecchymosis, No laceration, No rash or lesions Lymph: nl lymph nodes, nontender Results Result Diagram: 05/01/17 0516 04/30/17 0558 RAYMUNDO VARGAS NP May 03, 2017 15:00
[2017-05-03] MEDS ORDERED: LIDOCAINE 1% (MDV) 20 ML INJ ONE (15:42)
--- NOTE | 2017-05-03 17:32 | RADRPT ---
PROCEDURE: Ultrasound guided thyroid nodule aspiration. CLINICAL INDICATION: Painful left thyroid nodule. TECHNIQUE: Prior to the procedure, informed consent was obtained. Risks including bleeding and in fection were explained to the patient. The patient understood was willing to proceed. A procedural pause was performed. The patient's name, date of , and procedure to be performed were verifie d. Using local anesthetic, sterile technique and ultrasound guidance, a 22 -gauge needle was advanced i nto the nodule in the left lobe. Approximately 3 ml of brownish fluid was aspirated and sent for la boratory analysis. The patient tolerated the procedure well. COMPARISON: Thyroid ultrasound dated 05/01/2017. FINDINGS: Images demonstrate the needle within the nodule in question. IMPRESSION: 1. Satisfactory ultrasound-guided left lobe thyroid nodule aspiration. RPTAT: QQ .Kash Cotter MD, MD Date Time Electronically viewed and signed by .Kash Cotter MD, on 05/03/2017 17:32 .R/
--- NOTE | 2017-05-03 18:46 | CONS ---
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 I believe fluid was sent for culture. Will advance patient's diet to see if if p.o. is better tolerated. Have reviewed pathology report from [facility] where the patient had original fine-needle aspiration of the nodule. States "cannot rule out follicular neoplasm". This likely refers to a [place] 3 lesion. However [place] categorization has not been applied to this pathology report. Will contact pathology tomorrow to have them clarify [place] category for this pathology report. If [place] category is 3 or higher, patient should have hemithyroidectomy. This would likely be curative also of her thyrotoxicosis although we cannot be certain because nuclear scan was never done of her thyroid. As noted in previous progress note nuclear scan cannot be done now. If patient able to tolerate p.o. diet with reduction in dysphagia following aspiration, ongoing hospitalization is unnecessary. (2) Thyrotoxicosis without thyroid storm Status: Acute Comment: Continue methimazole and propranolol. Heart rate controlled Qualifiers: Thyrotoxicosis type: unspecified thyrotoxicosis type Qualified Code: E05.90 - Thyrotoxicosis without thyroid storm, unspecified thyrotoxicosis type Consultation Date/Type/Reason Admit Date/Time Apr 28, 2017 at 20:18 Initial Consult Date 05/01/17 Type of Consultation: Endocrinology Reason for Consultation Thyrotoxicosis with mass-effect from thyroid nodule. Referring Provider: HTAO ARREDONDO MD 24 HR Interval Summary Constitutional: no complaints Detailed Summary Respiratory: no complaints Cardiovascular: no complaints Gastrointestinal: no complaints Genitourinary: no complaints Musculoskeletal: neck pain (Nodule now hurts because is status post aspiration. However patient notes that the nodule is smaller. Unable to tell if it affects the pain when swallowing because patient has been on liquid diet. Would like to advance to regular.) Neurologic: no complaints Exam/Review of Systems Vital Signs Vitals VS - Last 72 Hours, by Label Date Time Temp Pulse Resp B/P Pulse Ox O2 Delivery O2 Flow Rate FiO2 05/03/17 14:46 98.2 82 16 126/61 98 05/03/17 07:52 97.6 86 16 118/64 98 05/03/17 02:00 98.0 83 19 120/61 98 9/18/17 20:00 98.2 80 20 113/65 97 05/02/17 14:45 98.1 92 18 137/73 99 05/02/17 08:19 97.6 84 18 135/67 98 05/02/17 08:00 97.6 84 18 135/67 98 05/02/17 02:53 97.8 85 18 99/50 98 05/01/17 21:02 98.3 84 18 109/57 98 05/01/17 14:17 98.3 86 16 102/58 97 05/01/17 07:45 98.0 91 16 106/59 97 05/01/17 02:00 98.5 99 19 104/56 98 04/30/17 20:00 97.6 100 18 106/58 99 Vital Signs Date Time Temp Pulse Resp B/P Pulse Ox O2 Delivery O2 Flow Rate FiO2 05/03/17 14:46 98.2 82 16 126/61 98 04/29/17 09:43 Room Air Intake and Output 05/02/17 05/02/17 05/03/17 15:00 23:00 07:00 Intake Total 2170 ml 2062.5 ml Balance 2170 ml 2062.5 ml Exam Constitutional: alert, oriented, well developed Neck: thyromegaly (Left thyroid mass smaller than before on palpation, web machine tender to palpation as would be expected following fine-needle aspiration) Respiratory: clear to auscultation, normal air movement Cardiovascular: nl pulses, regular rate and rhythm, No edema, No murmurs/extra sounds, No rub Gastrointestinal: bowel sounds, nl liver, spleen, non-tender, soft, No mass, No rebound or guarding Musculoskeletal: nl extremities to inspection Extremities: normal pulses, No clubbing, No cyanosis, No edema Neurological: [employer] II-XII intact, nl mental status, nl speech, nl strength Results Result Diagram: 05/01/17 0516 04/30/17 0558 Results 24 hrs Laboratory Tests Test 05/03/17 13:48 Prothrombin Time 12.4 Prothrombin Time Ratio 1.0 INR International Normalized Ratio 0.92 Activated Partial Thromboplast Time 28.9 Medications Medications Current Medications Sodium Chloride (NS) 1,000 ml @ 75 mls/hr [id number] IV Last administered on 05/03t 08:24; Admin Dose 75 MLS/HR; Start 04/28/17 at 21:00 Acetaminophen (Tylenol Tab) 650 mg Q6H PRN PO PAIN AND OR ELEVATED TEMP Last administered on 05/02/17 02:13; Admin Dose 650 MG; Start 04/28/17 at 21:00 Acetaminophen/ Hydrocodone Bitart 1 tab 1 tab Q6H PRN PO PAIN Last administered on 04/29/17 11:02; Admin Dose 1 TAB; Start 04/28/17 at 21:00 Ceftriaxone Sodium (Rocephin) 50 ml @ 100 mls/hr Q24H IVPB Last administered on 05/02/17 20:39; Admin Dose 100 MLS/HR; Start 04/28/17 at 21:00 Ondansetron HCl (Zofran Inj) 4 mg Q6H PRN IV NAUSEA AND/OR VOMITING Last administered on 05/02/17 08:43; Admin Dose 4 MG; Start 04/29/17 at 13:30 Zolpidem Tartrate (Ambien) 5 mg HS PRN PO INSOMNIA Last administered on 22:55; Admin Dose 5 MG; Start 04/29/17 at 23:30 Metoclopramide HCl (Reglan) 10 mg Q8H PRN IV NAUSEA AND/OR VOMITING Last administered on 05/03/17 08:24; Admin Dose 10 MG; Start 04/30/17 at 11:30 Pantoprazole (Protonix Tab) 40 mg DAILY@06 PO Last administered on 05/03/17 05 :42; Admin Dose 40 MG; Start 05/01/17 at 06:00 Methimazole (Tapazole) 20 mg DAILY PO Last administered on 05/03/17 08:24; Admin Dose 20 MG; Start 05/01/17 at 12:30 Propranolol HCl (Inderal) 10 mg QID PO Last administered on 05/03/17 17:03; Admin Dose 10 MG; Start 05/01/17 at 13:00 Ibuprofen (Motrin) 600 mg Q6 PO Last administered on 05/03/17 17:15; Admin Dose 600 MG; Start 05/01/17 at 18:00 Morphine Sulfate (morphine) 2 mg Q4H PRN IV PAIN LEVEL 7-10 Last administered on 05/03/17 12:39; Admin Dose 2 MG; Start 05/02/17 at 15:30 Hydromorphone HCl (Dilaudid) 1 mg Q4H PRN IV PAIN Last administered on 17:04; Admin Dose 1 MG; Start 05/03/17 at 14:30 BRANDI HERNANDEZ MD May 03, 2017 18:45
[2017-05-03] MEDS: HYDROCODONE/APAP (5/325) TAB PO PRN (19:25)
[2017-05-03 21:03] VITALS: BP 122/71; RESP 18
[2017-05-03] MEDS: CEFTRIAXONE 1 GM/50 ML (PMX) 50 ML IVPB SCH (21:20)
[2017-05-04] MEDS: HYDROmorphONE 1 MG/ML SYG IV PRN ×3 (01:26→10:07)
[2017-05-04] MEDS: ZOLPIDEM 5 MG TAB PO PRN (01:47)
[2017-05-04] MEDS: HYDROCODONE/APAP (5/325) TAB PO PRN ×4 (02:00→22:48)
[2017-05-04 03:16] VITALS: BP 144/72; RESP 18
[2017-05-04] MEDS: PANTOPRAZOLE (EC) 40 MG TAB PO SCH (06:08)
[2017-05-04] MEDS: IBUPROFEN 600 MG TAB PO SCH ×3 (06:08→17:35)
[2017-05-04 08:25] VITALS: BP 110/54; RESP 20
[2017-05-04] MEDS: METHIMAZOLE 5 MG TAB PO SCH (08:32)
[2017-05-04] MEDS: PROPRANOLOL 10 MG TAB PO SCH ×4 (08:33→22:47)
[2017-05-04] MEDS: ONDANSETRON 4 MG INJ IV PRN ×2 (10:37→22:49)
--- NOTE | 2017-05-04 11:06 | PN ---
Date/Time of Note Date/Time of Note DATE: 05/04/17 TIME: 11:06 Assessment/Plan VTE Prophylaxis VTE Prophylaxis Intervention: LMWH Lines/Catheters IV Catheter Type (from Nrs): Peripheral IV Urinary Cath still in place: No Assessment/Plan Chief Complaint/Hosp Course 37 y/o with hief Complaint/Hosp Course # Complex thyroid lesion (left 3.6x2.2x3.3 cm), s/p biopsy on 04/15/2017. CT noted. Pending final path # . Thyrotoxicosis +/- Graves vs. multinodular goiter # Dysphagia secondary to Thyroid lesion # .Tachycardia secondary to thyrotoxicosis # Anemia: no acute bleed Recs - Pain control with Morphine/norco, d/c all iv pain meds , switch to po - Final biopsy showed " r/o follicular neoplasm" tried contacting pathologist Lacey Thomason [phone] but unable to reach, will try again tmw for [place] classification - c/w Propanolol and methimazole - Endo following - Possible dc tmw if pain controlled on po meds Problems: Subjective 24 Hr Interval Summary Free Text/Dictation Pain is still persistent but was able to tolerate po diet Exam/Review of Systems Vital Signs Vitals Vital Signs Date Time Temp Pulse Resp B/P Pulse Ox O2 Delivery O2 Flow Rate FiO2 05/04/17 08:25 98.2 85 20 110/54 97 Intake and Output 05/03/17 05/03/17 05/04/17 15:00 23:00 07:00 Intake Total 225 ml 2370 ml 1525 ml Balance 225 ml 2370 ml 1525 ml Exam Gen:awake and alert Neck:left neck swelling, tenderness CVS:Regular rate and rthym Abdomen:soft, non tender Ext : no edema Results Result Diagram: 05/01/17 0516 04/30/17 0558 Results 24 hrs Laboratory Tests Test 05/03/17 13:48 05/04/17 07:58 Prothrombin Time 12.4 Prothrombin Time Ratio 1.0 INR International Normalized Ratio 0.92 Activated Partial Thromboplast Time 28.9 Bedside Glucose 98 Medications Medications Current Medications Sodium Chloride (NS) 1,000 ml @ 75 mls/hr [id number] IV Last administered on 05/03t 22:26; Admin Dose 75 MLS/HR; Start 04/28/17 at 21:00 Acetaminophen (Tylenol Tab) 650 mg Q6H PRN PO PAIN AND OR ELEVATED TEMP Last administered on 05/02/17 02:13; Admin Dose 650 MG; Start 04/28/17 at 21:00 Acetaminophen/ Hydrocodone Bitart 1 tab 1 tab Q6H PRN PO PAIN Last administered on 05/04/17 07:56; Admin Dose 1 TAB; Start 04/28/17 at 21:00 Ceftriaxone Sodium (Rocephin) 50 ml @ 100 mls/hr Q24H IVPB Last administered on 05/03/17 21:20; Admin Dose 100 MLS/HR; Start 04/28/17 at 21:00 Ondansetron HCl (Zofran Inj) 4 mg Q6H PRN IV NAUSEA AND/OR VOMITING Last administered on 05/04/17 10:37; Admin Dose 4 MG; Start 04/29/17 at 13:30 Zolpidem Tartrate (Ambien) 5 mg HS PRN PO INSOMNIA Last administered on 01:47; Admin Dose 5 MG; Start 04/29/17 at 23:30 Metoclopramide HCl (Reglan) 10 mg Q8H PRN IV NAUSEA AND/OR VOMITING Last administered on 05/03/17 08:24; Admin Dose 10 MG; Start 04/30/17 at 11:30 Pantoprazole (Protonix Tab) 40 mg DAILY@06 PO Last administered on 05/04/17 06 :08; Admin Dose 40 MG; Start 05/01/17 at 06:00 Methimazole (Tapazole) 20 mg DAILY PO Last administered on 05/04/17 08:32; Admin Dose 20 MG; Start 05/01/17 at 12:30 Propranolol HCl (Inderal) 10 mg QID PO Last administered on 05/04/17 08:33; Admin Dose 10 MG; Start 05/01/17 at 13:00 Ibuprofen (Motrin) 600 mg Q6 PO Last administered on 05/04/17 06:08; Admin Dose 600 MG; Start 05/01/17 at 18:00 Morphine Sulfate (morphine) 2 mg Q4H PRN IV PAIN LEVEL 7-10 Last administered on 05/03/17 12:39; Admin Dose 2 MG; Start 05/02/17 at 15:30 Hydromorphone HCl (Dilaudid) 1 mg Q4H PRN IV PAIN Last administered on t 10:07; Admin Dose 1 MG; Start 05/03/17 at 14:30 JAZIEL LOCKHART MD May 04, 2017 11:06
[2017-05-04 14:00] VITALS: BP 111/57; RESP 18
--- NOTE | 2017-05-04 14:40 | PN ---
Date/Time of Note Date/Time of Note DATE: 05/04/17 TIME: 14:31 Assessment/Plan Lines/Catheters IV Catheter Type (from [facility]): Peripheral IV Tristan in Place (from [facility]): No Assessment/Plan Chief Complaint/Hosp Course 1. Complex thyroid lesion (left 3.6x2.2x3.3 cm), s/p biopsy on 04/15/2017. CT noted. Appreciate endocrine input. Path from 04/15: Hypercellular specimen, cannot exclude neoplasm; US guided aspiration yesterday- awaiting culture -per ent 2. Thyrotoxicosis +/- Graves vs. multinodular goiter -endocrine optimization and treatment -fluids -pain control -anti-inflammatory 3. Neck pain, dysphagia 2nd #1: dysphagia continues -as above -pain management 4. Tachycardia 2nd above doubt infection: tachycardia improved, afebrile wbc nl -as above 5. Anemia: no acute bleed -monitor and transfuse as needed Patient seen and examined in collaboration with Dr. Talat Chaparro. Thank you. Problems: Subjective 24 Hr Interval Summary S/p fine needle aspiration yesterday. Still with neck pain, unable to swallow without difficulty. No fevers, chills. sob, congestion, cp, palpitations, n/v/d/ dysuria. Tolerating liquids. Exam/Review of Systems Vital Signs Vitals Vital Signs Date Time Temp Pulse Resp B/P Pulse Ox O2 Delivery O2 Flow Rate FiO2 05/04/17 08:25 98.2 85 20 110/54 97 Intake and Output 05/03/17 05/03/17 05/04/17 15:00 23:00 07:00 Intake Total 225 ml 2370 ml 1525 ml Balance 225 ml 2370 ml 1525 ml Exam Free Text/Dictation Constitutional: alert, oriented, No distress Psych: anxious, down Head: atraumatic, normocephalic, No hematomas, No lacerations Eyes: EOMI, PERRL, nl conjunctiva, No icteric ENMT: mucosa pink and moist, nl external ears & nose, nl lips & teeth Neck: supple, thyromegaly , tender Respiratory: normal air movement, No congested cough, No labored breathing, No wheezing Cardiovascular: No edema, No regular rate and rhythm Gastrointestinal: non-tender, soft, No distended, No rebound or guarding Musculoskeletal: nl extremities to inspection, No joint tenderness Extremities: normal pulses, No calf tenderness, No cyanosis, No edema Neurological: nl mental status, soft speech, nl strength, No confused Skin: No diaphoresis, No ecchymosis, No laceration, No rash or lesions Lymph: nl lymph nodes, nontender Results Result Diagram: 05/01/17 0516 04/30/17 0558 RAYMUNDO VARGAS NP May 04, 2017 14:40
[2017-05-04] MEDS: morphine 2 MG INJ IV PRN ×2 (15:09→20:18)
--- NOTE | 2017-05-04 17:33 | CONS ---
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 He has clearly called this a [place] 3. [place] 3 lesions need to be surgically removed. If patient has toxic nodule (which is uncertain because we were unable to perform nuclear scan of thyroid) and [place] 3 lesion (which has a 15-20% chance of malignancy) and unremitting pain in her neck, and severe dysphagia then I believe the only course of action is a hemithyroidectomy. Hemithyroidectomy would definitively tell if this is a cancerous nodule or not, would likely cure her thyrotoxicosis, would rid her of her pain, and her dysphagia. Patient agreeable to surgical resection. Isthmus nodule could be removed at the same time leaving behind a pristine right thyroid lobe. Have advised patient to discuss this with surgery. (2) Thyrotoxicosis without thyroid storm Status: Acute Comment: Continue methimazole and propranolol. If nodule is resected, obviously methimazole would stop. Qualifiers: Thyrotoxicosis type: unspecified thyrotoxicosis type Qualified Code: E05.90 - Thyrotoxicosis without thyroid storm, unspecified thyrotoxicosis type Consultation Date/Type/Reason Admit Date/Time Apr 28, 2017 at 20:18 Initial Consult Date 05/01/17 Type of Consultation: Endocrinology Reason for Consultation Thyrotoxicosis with painful nodule Referring Provider: THAO ARREDONDO MD 24 HR Interval Summary Constitutional: no complaints Detailed Summary ENT: dysphagia (Trouble swallowing continues. Patient only able to take soft food. Not improved after aspiration) Respiratory: no complaints Cardiovascular: no complaints Gastrointestinal: no complaints Genitourinary: no complaints Musculoskeletal: neck pain (Not improved.) Neurologic: no complaints Exam/Review of Systems Vital Signs Vitals VS - Last 72 Hours, by Label Date Time Temp Pulse Resp B/P Pulse Ox O2 Delivery O2 Flow Rate FiO2 05/04/17 14:00 98.2 89 18 111/57 97 05/04/17 08:25 98.2 85 20 110/54 97 05/04/17 03:16 98.2 80 18 144/72 98 05/03/17 21:03 98.1 87 18 122/71 98 05/03/17 14:46 98.2 82 16 126/61 98 05/03/17 07:52 97.6 86 16 118/64 98 05/03/17 02:00 98.0 83 19 120/61 98 05/02/17 20:00 98.2 80 20 113/65 97 05/02/17 14:45 98.1 92 18 137/73 99 05/02/17 08:19 97.6 84 18 135/67 98 05/02/17 08:00 97.6 84 18 135/67 98 05/02/17 02:53 97.8 85 18 99/50 98 05/01/17 21:02 98.3 84 18 109/57 98 Vital Signs Date Time Temp Pulse Resp B/P Pulse Ox O2 Delivery O2 Flow Rate FiO2 05/04/17 14:00 98.2 89 18 111/57 97 Intake and Output 05/03/17 05/03/17 05/04/17 15:00 23:00 07:00 Intake Total 225 ml 2370 ml 1525 ml Balance 225 ml 2370 ml 1525 ml Exam Constitutional: alert, oriented, well developed Psych: nl mood/affect, no complaints Neck: thyromegaly (Positive tender mass left lower lobe of thyroid) Respiratory: clear to auscultation, normal air movement Cardiovascular: nl pulses, regular rate and rhythm, No edema, No murmurs/extra sounds, No rub Gastrointestinal: bowel sounds, nl liver, spleen, non-tender, soft, No mass, No rebound or guarding Musculoskeletal: nl extremities to inspection Extremities: normal pulses, No clubbing, No cyanosis, No edema Neurological: FREIGHT BROKER II-XII intact, nl mental status, nl speech, nl strength Results Result Diagram: 05/01/17 0516 04/30/17 0558 Results 24 hrs Laboratory Tests Test 05/04/17 07:58 Bedside Glucose 98 Medications Medications Current Medications Acetaminophen 650 mg 650 mg Q6H PRN PO PAIN AND OR ELEVATED TEMP Last administered on 05/02/17 02:13; Admin Dose 650 MG; Start 04/28/17 at 21:00 Ceftriaxone Sodium (Rocephin) 50 ml @ 100 mls/hr Q24H IVPB Last administered on 05/03/17 21:20; Admin Dose 100 MLS/HR; Start 04/28/17 at 21:00 Ondansetron HCl (Zofran Inj) 4 mg Q6H PRN IV NAUSEA AND/OR VOMITING Last administered on 05/04/17 10:37; Admin Dose 4 MG; Start 04/29/17 at 13:30 Zolpidem Tartrate (Ambien) 5 mg HS PRN PO INSOMNIA Last administered on 01:47; Admin Dose 5 MG; Start 04/29/17 at 23:30 Metoclopramide HCl (Reglan) 10 mg Q8H PRN IV NAUSEA AND/OR VOMITING Last administered on 05/03/17 08:24; Admin Dose 10 MG; Start 04/30/17 at 11:30 Pantoprazole (Protonix Tab) 40 mg DAILY@06 PO Last administered on 05/04/17 06 :08; Admin Dose 40 MG; Start 05/01/17 at 06:00 Methimazole (Tapazole) 20 mg DAILY PO Last administered on 05/04/17 08:32; Admin Dose 20 MG; Start 05/01/17 at 12:30 Propranolol HCl (Inderal) 10 mg QID PO Last administered on 05/04/17 12:21; Admin Dose 10 MG; Start 05/01/17 at 13:00 Ibuprofen (Motrin) 600 mg Q6 PO Last administered on 05/04/17 12:21; Admin Dose 600 MG; Start 05/01/17 at 18:00 Morphine Sulfate (morphine) 2 mg Q4H PRN IV PAIN LEVEL 7-10 Last administered on 05/04/17 15:09; Admin Dose 2 MG; Start 05/02/17 at 15:30 Acetaminophen/ Hydrocodone Bitart ([place] (5/325)) 1 tab Q3 PRN PO PAIN Last administered on 05/04/17 14:01; Admin Dose 1 TAB; Start 05/04/17 at 12:00 BRANDI HERNANDEZ MD May 04, 2017 17:33
[2017-05-04 19:53] VITALS: BP 135/60; RESP 18
[2017-05-04] MEDS: CEFTRIAXONE 1 GM/50 ML (PMX) 50 ML IVPB SCH (22:49)
[2017-05-05] MEDS: IBUPROFEN 600 MG TAB PO SCH ×4 (00:13→18:34)
[2017-05-05] MEDS: ZOLPIDEM 5 MG TAB PO PRN (00:57)
[2017-05-05 02:43] VITALS: BP 102/60; RESP 18
[2017-05-05] MEDS: PANTOPRAZOLE (EC) 40 MG TAB PO SCH (05:12)
[2017-05-05 08:00] VITALS: BP 104/55; RESP 16
[2017-05-05] MEDS: PROPRANOLOL 10 MG TAB PO SCH ×4 (08:56→21:00)
[2017-05-05] MEDS: METHIMAZOLE 5 MG TAB PO SCH (08:57)
[2017-05-05] MEDS: METOCLOPRAMIDE 10 MG INJ IV PRN (08:59)
[2017-05-05] MEDS: morphine 2 MG INJ IV PRN ×2 (08:59→21:35)
--- NOTE | 2017-05-05 09:29 | PN ---
Date/Time of Note Date/Time of Note DATE: 05/05/17 TIME: 09:29 Assessment/Plan VTE Prophylaxis VTE Prophylaxis Intervention: ambulation Lines/Catheters IV Catheter Type (from Nrs): Saline Lock Central line still needed: No Urinary Cath still in place: No Assessment/Plan Chief Complaint/Hosp Course 37 y/o with hief Complaint/Hosp Course # Complex thyroid lesion (left 3.6x2.2x3.3 cm), s/p biopsy on 04/15/2017. CT noted. Pending final path # . Thyrotoxicosis +/- Graves vs. multinodular goiter # Dysphagia secondary to Thyroid lesion # .Tachycardia secondary to thyrotoxicosis # Anemia: no acute bleed Recs - Pain control with Morphine/norco, d/c all iv pain meds , switch to po - Final biopsy showed " r/o follicular neoplasm" tried contacting pathologist Lacey Thomason [phone] but unable to reach, will try again tmw for Betheseda classification - c/w Propanolol and methimazole - Endo following - Possible dc tmw if pain controlled on po meds Problems: Exam/Review of Systems Vital Signs Vitals Vital Signs Date Time Temp Pulse Resp B/P Pulse Ox O2 Delivery O2 Flow Rate FiO2 05/05/17 08:00 97.6 78 16 104/55 97 Intake and Output 05/04/17 05/04/17 05/05/17 15:00 23:00 07:00 Intake Total 1140 ml 770 ml Balance 1140 ml 770 ml Results Result Diagram: 05/01/17 0516 Medications Medications Current Medications Acetaminophen 650 mg 650 mg Q6H PRN PO PAIN AND OR ELEVATED TEMP Last administered on 05/02/17 02:13; Admin Dose 650 MG; Start 04/28/17 at 21:00 Ceftriaxone Sodium (Rocephin) 50 ml @ 100 mls/hr Q24H IVPB Last administered on 05/04/17 22:49; Admin Dose 100 MLS/HR; Start 04/28/17 at 21:00 Ondansetron HCl (Zofran Inj) 4 mg Q6H PRN IV NAUSEA AND/OR VOMITING Last administered on 05/04/17 22:49; Admin Dose 4 MG; Start 04/29/17 at 13:30 Zolpidem Tartrate (Ambien) 5 mg HS PRN PO INSOMNIA Last administered on 00:57; Admin Dose 5 MG; Start 04/29/17 at 23:30 Metoclopramide HCl (Reglan) 10 mg Q8H PRN IV NAUSEA AND/OR VOMITING Last administered on 05/05/17 08:59; Admin Dose 10 MG; Start 04/30/17 at 11:30 Pantoprazole (Protonix Tab) 40 mg DAILY@06 PO Last administered on 05/05/17 05 :12; Admin Dose 40 MG; Start 05/01/17 at 06:00 Methimazole (Tapazole) 20 mg DAILY PO Last administered on 05/05/17 08:57; Admin Dose 20 MG; Start 05/01/17 at 12:30 Propranolol HCl (Inderal) 10 mg QID PO Last administered on 05/04/17 22:47; Admin Dose 10 MG; Start 05/01/17 at 13:00 Ibuprofen (Motrin) 600 mg Q6 PO Last administered on 05/05/17 05:12; Admin Dose 600 MG; Start 05/01/17 at 18:00 Morphine Sulfate (morphine) 2 mg Q4H PRN IV PAIN LEVEL 7-10 Last administered on 05/05/17 08:59; Admin Dose 2 MG; Start 05/02/17 at 15:30 Acetaminophen/ Hydrocodone Bitart ([place] (5/325)) 1 tab Q3 PRN PO PAIN Last administered on 05/04/17 22:48; Admin Dose 1 TAB; Start 05/04/17 at 12:00 JAZIEL LOCKHART MD May 05, 2017 09:29
--- NOTE | 2017-05-05 12:21 | PN ---
Date/Time of Note Date/Time of Note DATE: 05/05/17 TIME: 12:13 Assessment/Plan Lines/Catheters IV Catheter Type (from [facility]): Saline Lock Tristan in Place (from [facility]): No Assessment/Plan Chief Complaint/Hosp Course 1. Complex thyroid lesion (left 3.6x2.2x3.3 cm), s/p biopsy on 04/15/2017. CT noted. Appreciate endocrine input. Path from 04/15: Hypercellular specimen, cannot exclude neoplasm; US guided aspiration yesterday- no organism -Recommendation for hemithyroidectomy: since patient with lymph node involvement we recommend to have procedure performed by ent 2. Thyrotoxicosis +/- Graves vs. multinodular goiter -endocrine optimization and treatment -fluids -pain control -anti-inflammatory 3. Neck pain, dysphagia 2nd #1: dysphagia continues -as above -pain management 4. Tachycardia 2nd above doubt infection: tachycardia improved, afebrile wbc nl -as above 5. Anemia: no acute bleed -monitor and transfuse as needed Patient seen and examined in collaboration with Dr. Talat Chaparro. Thank you. Problems: Subjective 24 Hr Interval Summary Continues to have neck pain. Still with difficulty swallowing. Fine needle aspiration fluid without organisms seen. No fevers, chills. sob, congestion, n/v /d/dysuria, cobb, dizziness. Exam/Review of Systems Vital Signs Vitals Vital Signs Date Time Temp Pulse Resp B/P Pulse Ox O2 Delivery O2 Flow Rate FiO2 05/05/17 08:00 97.6 78 16 104/55 97 Intake and Output 05/04/17 05/04/17 05/05/17 15:00 23:00 07:00 Intake Total 1140 ml 770 ml Balance 1140 ml 770 ml Exam Free Text/Dictation Constitutional: alert, oriented, No distress Psych: anxious, down Head: atraumatic, normocephalic, No hematomas, No lacerations Eyes: EOMI, PERRL, nl conjunctiva, No icteric ENMT: mucosa pink and moist, nl external ears & nose, nl lips & teeth Neck: supple, thyromegaly, tender, painful Respiratory: normal air movement, No congested cough, No labored breathing, No wheezing Cardiovascular: No edema, No regular rate and rhythm Gastrointestinal: non-tender, soft, No distended, No rebound or guarding Musculoskeletal: nl extremities to inspection, No joint tenderness Extremities: normal pulses, No calf tenderness, No cyanosis, No edema Neurological: nl mental status, soft speech, nl strength, No confused Skin: No diaphoresis, No ecchymosis, No laceration, No rash or lesions lymph: nl to palpation Results Result Diagram: 05/01/17 0516 RAYMUNDO VARGAS NP May 05, 2017 12:21
[2017-05-05] MEDS: HYDROmorphONE 1 MG/ML SYG IV PRN ×3 (13:55→22:36)
[2017-05-05 14:52] VITALS: BP 94/55; RESP 18
--- NOTE | 2017-05-05 16:08 | PN ---
Date/Time of Note Date/Time of Note DATE: 05/05/17 TIME: 16:05 Assessment/Plan VTE Prophylaxis VTE Prophylaxis Intervention: LMWH Lines/Catheters IV [facility] Saline Lock Urinary Cath still in place: No Assessment/Plan Chief Complaint/Hosp Course 37 y/o with hief Complaint/Hosp Course # Complex thyroid lesion (left 3.6x2.2x3.3 cm), s/p biopsy on 04/15/2017. CT noted. + Betheseda III # . Thyrotoxicosis +/- Graves vs. multinodular goiter # Dysphagia secondary to Thyroid lesion # .Tachycardia secondary to thyrotoxicosis # Anemia: no acute bleed Recs - Pain control , add iv dilaudid again - Final biopsy showed " r/o follicular neoplasm" Betheseda III per Endocrine note> called Dr Moncada for Hemithroidectomy - c/w Propanolol and methimazole - Endo following - Soft diet Problems: Subjective 24 Hr Interval Summary Free Text/Dictation Still having lot of pain in left side of neck not controlled with po meds Exam/Review of Systems Vital Signs Vitals Vital Signs Date Time Temp Pulse Resp B/P Pulse Ox O2 Delivery O2 Flow Rate FiO2 05/05/17 14:52 98.3 85 18 94/55 92 Intake and Output 05/04/17 05/04/17 05/05/17 15:00 23:00 07:00 Intake Total 1140 ml 770 ml Balance 1140 ml 770 ml Exam Gen:awake and alert Neck:left neck swelling, tenderness CVS:Regular rate and rthym Abdomen:soft, non tender Ext : no edema Results Result Diagram: 05/01/17 0516 Medications Medications Current Medications Acetaminophen 650 mg 650 mg Q6H PRN PO PAIN AND OR ELEVATED TEMP Last administered on 05/02/17 02:13; Admin Dose 650 MG; Start 04/28/17 at 21:00 Ceftriaxone Sodium (Rocephin) 50 ml @ 100 mls/hr Q24H IVPB Last administered on 05/04/17 22:49; Admin Dose 100 MLS/HR; Start 04/28/17 at 21:00 Ondansetron HCl (Zofran Inj) 4 mg Q6H PRN IV NAUSEA AND/OR VOMITING Last administered on 05/04/17 22:49; Admin Dose 4 MG; Start 04/29/17 at 13:30 Zolpidem Tartrate (Ambien) 5 mg HS PRN PO INSOMNIA Last administered on 00:57; Admin Dose 5 MG; Start 04/29/17 at 23:30 Metoclopramide HCl (Reglan) 10 mg Q8H PRN IV NAUSEA AND/OR VOMITING Last administered on 05/05/17 08:59; Admin Dose 10 MG; Start 04/30/17 at 11:30 Pantoprazole (Protonix Tab) 40 mg DAILY@06 PO Last administered on 05/05/17 05 :12; Admin Dose 40 MG; Start 05/01/17 at 06:00 Methimazole (Tapazole) 20 mg DAILY PO Last administered on 05/05/17 08:57; Admin Dose 20 MG; Start 05/01/17 at 12:30 Propranolol HCl (Inderal) 10 mg QID PO Last administered on 05/04/17 22:47; Admin Dose 10 MG; Start 05/01/17 at 13:00 Ibuprofen (Motrin) 600 mg Q6 PO Last administered on 05/05/17 12:34; Admin Dose 600 MG; Start 05/01/17 at 18:00 Morphine Sulfate (morphine) 2 mg Q4H PRN IV PAIN LEVEL 7-10 Last administered on 05/05/17 08:59; Admin Dose 2 MG; Start 05/02/17 at 15:30 Acetaminophen/ Hydrocodone Bitart ([place] (5/325)) 1 tab Q3 PRN PO PAIN Last administered on 05/04/17 22:48; Admin Dose 1 TAB; Start 05/04/17 at 12:00 Hydromorphone HCl (Dilaudid) 1 mg Q4H PRN IV PAIN Last administered on 13:55; Admin Dose 1 MG; Start 05/05/17 at 10:00 JAZIEL LOCKHART MD May 05, 2017 16:08
[2017-05-05 20:14] VITALS: BP 116/86; RESP 19
[2017-05-05] MEDS: CEFTRIAXONE 1 GM/50 ML (PMX) 50 ML IVPB SCH (21:35)
[2017-05-06] MEDS: IBUPROFEN 600 MG TAB PO SCH ×4 (00:51→17:41)
[2017-05-06] MEDS: morphine 2 MG INJ IV PRN ×5 (01:36→17:38)
[2017-05-06 02:16] VITALS: BP 125/62; RESP 18
[2017-05-06] MEDS: HYDROmorphONE 1 MG/ML SYG IV PRN ×5 (02:43→19:33)
[2017-05-06] MEDS: PANTOPRAZOLE (EC) 40 MG TAB PO SCH (05:26)
--- NOTE | 2017-05-06 08:20 | PN ---
Date/Time of Note Date/Time of Note DATE: 05/06/17 TIME: 08:08 Assessment/Plan Lines/Catheters IV Catheter Type (from Nrs): Saline Lock Tristan in Place (from Nrs): No Assessment/Plan Chief Complaint/Hosp Course 1. Complex thyroid lesion (left 3.6x2.2x3.3 cm), s/p biopsy on 04/15/2017. CT noted. Appreciate endocrine input. Path from 04/15: [place] III lesion; US guided aspiration (05/03): no growth -Re: recommendation for hemithyroidectomy: since patient with lymph node involvement we recommend to have procedure performed by ent; ENT called 2. Neck pain, dysphagia 2nd #1: dysphagia continues -recommend pureed food/soft diet for persistent dysphagia -as above -pain management 3. Thyrotoxicosis +/- Graves vs. multinodular goiter -endocrine optimization and treatment -fluids -pain control -anti-inflammatory 4. Tachycardia 2nd above doubt infection: tachycardia improved, afebrile wbc nl -as above 5. Anemia: no acute bleed -monitor and transfuse as needed Patient seen and examined in collaboration with Dr. Talat Chaparro. Thank you. Problems: Subjective 24 Hr Interval Summary Continues to have pain with particular pain during swallowing. Reports having pain with swallowing, needing to mash up food prior to eating. Pending ENT eval. No fevers, chills, sob, congested cough, cp, palpitations, n/v/d/dysuria, cobb, dizziness Exam/Review of Systems Vital Signs Vitals Vital Signs Date Time Temp Pulse Resp B/P Pulse Ox O2 Delivery O2 Flow Rate FiO2 05/06/17 02:16 98.2 74 18 125/62 96 Intake and Output 05/05/17 05/05/17 05/06/17 15:00 23:00 07:00 Intake Total 1490 ml 120 ml Balance 1490 ml 120 ml Exam Free Text/Dictation Constitutional: alert, oriented, No distress Psych: depressed mood Head: atraumatic, normocephalic, No hematomas, No lacerations Eyes: EOMI, PERRL, nl conjunctiva, No icteric ENMT: mucosa pink and moist, nl external ears & nose, nl lips & teeth Neck: supple, thyromegaly, tender, painful Respiratory: normal air movement, No congested cough, No labored breathing, No wheezing Cardiovascular: No edema, No regular rate and rhythm Gastrointestinal: non-tender, soft, No distended, No rebound or guarding Musculoskeletal: nl extremities to inspection, No joint tenderness Extremities: normal pulses, No calf tenderness, No cyanosis, No edema Neurological: nl mental status, soft speech, nl strength, No confused Skin: No diaphoresis, No ecchymosis, No laceration, No rash or lesions lymph: nl to palpation RAYMUNDO VARGAS [employer] May 06, 2017 08:20
[2017-05-06 08:27] VITALS: BP 98/55; RESP 18
[2017-05-06] MEDS: ONDANSETRON 4 MG INJ IV PRN (08:43)
[2017-05-06] MEDS: METHIMAZOLE 5 MG TAB PO SCH (08:46)
[2017-05-06] MEDS: PROPRANOLOL 10 MG TAB PO SCH ×4 (08:51→17:00)
--- NOTE | 2017-05-06 12:04 | PN ---
Date/Time of Note Date/Time of Note DATE: 05/06/17 TIME: 11:56 Assessment/Plan VTE Prophylaxis VTE Prophylaxis Intervention: ambulation Lines/Catheters IV [facility] Saline Lock Urinary Cath still in place: No Assessment/Plan Chief Complaint/Hosp Course 1. Complex thyroid mass: left thyroid lobe with 3.6x2.2x3.3 cm mass, s/p biopsy on 04/15/2017, neoplasm 2. Thyrotoxicosis, pt is on methimazole. 3. neck pain 4. tachycardia resolved Problems: Assessment/Plan 1. Continue pain control 2. called dr Reid, ENT for partial thyroidectomy. He is not in the office, he is out for a holiday. Able to come only on Tuesday. Spoke to Karli in his office , left a message. Dr Luciano unable to see pt per insurance. 3. continue current regime Subjective 24 Hr Interval Summary ENT: dysphagia (able to eat soft food only), pain (throat) Exam/Review of Systems Vital Signs Vitals Vital Signs Date Time Temp Pulse Resp B/P Pulse Ox O2 Delivery O2 Flow Rate FiO2 05/06/17 08:27 98.2 82 18 98/55 98 Intake and Output 05/05/17 05/05/17 05/06/17 15:00 23:00 07:00 Intake Total 1490 ml 120 ml Balance 1490 ml 120 ml Exam Constitutional: alert, oriented ENMT: other Neck: masses, thyromegaly Respiratory: clear to auscultation Cardiovascular: regular rate and rhythm Gastrointestinal: soft Medications Medications Current Medications Acetaminophen 650 mg 650 mg Q6H PRN PO PAIN AND OR ELEVATED TEMP Last administered on 05/02/17 02:13; Admin Dose 650 MG; Start 04/28/17 at 21:00 Ceftriaxone Sodium (Rocephin) 50 ml @ 100 mls/hr Q24H IVPB Last administered on 05/05/17 21:35; Admin Dose 100 MLS/HR; Start 04/28/17 at 21:00 Ondansetron HCl (Zofran Inj) 4 mg Q6H PRN IV NAUSEA AND/OR VOMITING Last administered on 05/06/17 08:43; Admin Dose 4 MG; Start 04/29/17 at 13:30 Zolpidem Tartrate (Ambien) 5 mg HS PRN PO INSOMNIA Last administered on 00:57; Admin Dose 5 MG; Start 04/29/17 at 23:30 Metoclopramide HCl (Reglan) 10 mg Q8H PRN IV NAUSEA AND/OR VOMITING Last administered on 05/05/17 08:59; Admin Dose 10 MG; Start 04/30/17 at 11:30 Pantoprazole (Protonix Tab) 40 mg DAILY@06 PO Last administered on 05/06/17 05 :26; Admin Dose 40 MG; Start 05/01/17 at 06:00 Methimazole (Tapazole) 20 mg DAILY PO Last administered on 05/06/17 08:46; Admin Dose 20 MG; Start 05/01/17 at 12:30 Propranolol HCl (Inderal) 10 mg QID PO Last administered on 05/05/17 17:59; Admin Dose 10 MG; Start 05/01/17 at 13:00 Ibuprofen (Motrin) 600 mg Q6 PO Last administered on 05/06/17 05:26; Admin Dose 600 MG; Start 05/01/17 at 18:00 Morphine Sulfate (morphine) 2 mg Q4H PRN IV PAIN LEVEL 7-10 Last administered on 05/06/17 09:29; Admin Dose 2 MG; Start 05/02/17 at 15:30 Acetaminophen/ Hydrocodone Bitart ([place] (5/325)) 1 tab Q3 PRN PO PAIN Last administered on 05/04/17 22:48; Admin Dose 1 TAB; Start 05/04/17 at 12:00 Hydromorphone HCl (Dilaudid) 1 mg Q4H PRN IV PAIN Last administered on 11:26; Admin Dose 1 MG; Start 05/05/17 at 10:00 JOHN CUNNINGHAM May 06, 2017 12:04
[2017-05-06 14:26] VITALS: BP 105/59; RESP 18
--- NOTE | 2017-05-06 15:57 | PDOCDIS ---
Discharge Instructions DIAGNOSIS Discharge Diagnosis thyroid mass, thyrotoxicosis, neck pain CONDITION Patient Condition: Good HOME CARE INSTRUCTIONS: Special Diet: Full liquid diet ACTIVITY: Activity Restrictions: Slowly Increase Activity Bathing Restrictions: Shower FOLLOW UP/APPOINTMENTS Follow-up Plan Dr Reid, scheduled by case management REFERRALS Other Referrals PCP 1 week JOHN CUNNINGHAM May 06, 2017 15:57
[2017-05-06] MEDS ORDERED: PROP10TA6 PO (15:58)
[2017-05-06] MEDS ORDERED: METH-493 PO (15:58)
--- NOTE | 2017-05-06 21:53 | DS ---
Date/Time of Note Date/Time of Note DATE: 05/06/17 TIME: 21:51 Discharge Summary Admission/Discharge Info Admit Date/Time Apr 28, 2017 at 20:18 Discharge Date/Time May 06, 2017 at 19:40 Discharge Diagnosis malignant thyroid mass, thyrotoxicosis, neck pain, and tachycardia Patient Condition: Good Consults dr Chaparro, surgery, dr. Ellen Ladd Procedures aspiration biopsy Hx of Present Illness pt was transferred to [facility] on 04/28/2017 from [facility]. Per medical record from [facility] patient showed up on 04/28/17 with c/o swelling of left lower anterior neck starting 04/26. She reported pain 6/10 in rest, able to move her neck. Reported SOB and difficulty swallowing. Pt reported fever and chills. Positive for Thyroid biopsy on 04/15/2017. Blood culture and US neck was obtained Hospital Course Soon after admission pt was started on methimazole to control thyroid hormones. Her heart rate got decreased. Pain in neck got controlled with injectable opiates, pt was started on clear liquid diet due to her dysphagia, Later she got her diet advanced to full liquid diet. On US of neck found complex thyroid mass: left thyroid lobe with 3.6x2.2x3.3 cm mass. The pathology reported thyroid neoplasm dr Ladd commented that he discussed pt case with pathologist who read the original fine-needle aspirate. He has clearly called this a [place] 3. [place] 3 lesions need to be surgically removed. If patient has toxic nodule (which is uncertain because we were unable to perform nuclear scan of thyroid) and [place] 3 lesion (which has a 15-20% chance of malignancy) and unremitting pain in her neck, and severe dysphagia then I believe the only course of action is a hemithyroidectomy. Hemithyroidectomy would definitively tell if this is a cancerous nodule or not, would likely cure her thyrotoxicosis, would rid her of her pain, and her dysphagia. Patient agreeable to surgical resection. Isthmus nodule could be removed at the same time leaving behind a pristine right thyroid lobe. Have advised patient to discuss this with surgery. Case management suggested to contact with dr Reid. He got got called but due to holidays, in hospital consultation is not possible until Tuesday. The patient received an authorization from the insurance to see dr Reid in his office, appointment was made for the pt. Pt was supplied with appointment date. All medical information will be sent to Dr Gomes's office. With pain medications, b blockers, and methimasole pt was discharged home. Home Meds Active Scripts Methimazole* (Methimazole*) 5 Mg Tablet, 20 MG PO DAILY for 30 Days, TAB Prov:JOHN CUNNINGHAM 05/06/17 Propranolol Hcl* (Propranolol Hcl*) 10 Mg Tablet, 10 MG PO QID for 30 Days, TAB Prov:JOHN CUNNINGHAM 05/06/17 Discontinued Reported Medications Methimazole* (Methimazole*) 10 Mg Tablet, 10 MG PO DAILY, TAB 04/29/17 Follow-up Plan Dr Reid, scheduled by case management Primary Care Provider Care Physician JOHN Milligan May 06, 2017 21:53
== END 2017-05-06 19:40 | disposition home or self-care (01) | DRG 645 ==
LOC: PP2 20:18
PROVIDERS: ADMIT Internal Medicine Nephrology; ATTEND Internal Medicine Nephrology
PROC: 0G9G3ZX Drainage of Left Thyroid Gland Lobe, Percutaneous Approach, Diagnostic (ICD-10-PCS; principal; 2017-05-03)
DX: E05.10 Thyrotoxicosis with toxic single thyroid nodule without thyrotoxic crisis or storm (principal); R13.10 Dysphagia, unspecified; D44.0 Neoplasm of uncertain behavior of thyroid gland; D64.9 Anemia, unspecified; M54.2 Cervicalgia; Z87.891 Personal history of nicotine dependence
CPT/HCPCS: 70491; 76536; 80048; 82962; 83605; 84436; 84479; 85025; 85610; 85730; 86376; 87040; 87070; 87075; C9113; J0696; J1170; J2270; J2405; J2765; J7030; Q9967

== ENCOUNTER 2017-09-06 14:23 | Observation (INO) | END 2017-09-07 11:00 | disposition home or self-care (01) ==

== ENCOUNTER 2017-09-12 10:45 | Emergency (ER) | END 2017-09-12 14:30 | disposition home or self-care (01) ==

== ENCOUNTER 2018-08-10 18:56 | Emergency (ER) | payer OTHER ==
[~2018-08-10] VITALS: Ht 162.6 cm; Wt 64.6 kg
[~2018-08-10 18:56] MED LIST: CEPH-443 PO; HC30CR25 TOP
[2018-08-10 19:02] VITALS: BP 106/68; PULSE 108; RESP 20; Ht 162.6 cm; Wt 64.6 kg
--- NOTE | 2018-08-10 21:08 | ERD ---
ER Documentation Chief Complaint Chief Complaint L ankle pain d/t fall/twist 1 month ago- pt able to walk HPI 38-year-old female presents with left ankle pain after twisting it 6 weeks ago. She never got imaging at that time and came here for an x-ray. She is able to ambulate but still has some pain. ROS All systems reviewed and are negative except as per history of present illness. Medications Home Meds Active Scripts Hydrocortisone* Topical (Hydrocortisone* Topical) 2.5%-28.3 Gm Cream..g., 1 APPLIC TOP BID for 7 Days, #1 TUB Prov:MARIANGEL TIAN MD 09/12/17 Cephalexin* (Keflex*) 500 Mg Capsule, 500 MG PO QID for 7 Days, CAP Prov:MARIANGEL TIAN MD 09/12/17 Allergies Allergies: Coded Allergies: No Known Allergies (Verified Allergy, Unknown, 09/06/17) PMhx/Soc History of Surgery: Yes (C SECTIONX1,TRACHEOSTOMY A KID) Anesthesia Reaction: No Hx Neurological Disorder: No Hx Respiratory Disorders: No Hx Cardiac Disorders: Yes (cholesterol) Hx Psychiatric Problems: No Hx Miscellaneous Medical Probl: Yes (hypothyroidism) Hx Alcohol Use: Yes (OCC) Hx Substance Use: No Hx Tobacco Use: Yes (QUIT 1 YR AGO) Smoking Status: Former smoker FmHx Family History: No diabetes Physical Exam Vitals Vital Signs Date Temp Pulse Resp B/P (MAP) Pulse Ox O2 O2 Flow FiO2 Time Delivery Rate 08/10/18 98.9 108 20 106/68 100 19:02 (81) Physical Exam Const: No acute distress Head: Atraumatic Eyes: Normal Conjunctiva ENT: Normal External Ears, Nose and Mouth. Neck: Full range of motion. No meningismus. Resp: Clear to auscultation bilaterally Cardio: Regular rate and rhythm, no murmurs Lower Extremity -left: Skin: No laceration Compartments: Soft Motor: Full active range of motion hip/knee/ankle/foot Sensation: Intact to light touch FDWS/MF/LF/P surfaces. Bones: Nontender pelvis/knee/proximal tibia/ malleoli/foot Joints: No effusion or laxity Pulses/Perfusion: 2+ DP, Capillary refill < 2 seconds Procedures/MDM Patient is here for ankle pain after injury over a month ago. She is ambulatory neurovascular intact. Per her request x-ray was ordered. X-ray negative. Patient given copy of the results. Patient counseled regarding my diagnostic impression and care plan. Prior to discharge all questions answered. Pt agrees with treatment plan and understands strict return precautions. Pt is instructed to follow up with primary care provider within 24-48 hours. Precautionary instructions provided including instructions to return to the ER if not improving or for any worsening or changing symptoms or concerns. Departure Diagnosis: Primary Impression: Ankle pain Condition: Stable SIMONE SOTO PA-C Aug 10, 2018 21:08
== END 2018-08-10 22:33 | disposition home or self-care (01) ==
LOC: FTE 18:56
DX: M25.572 Pain in left ankle and joints of left foot (principal); E03.9 Hypothyroidism, unspecified; Z87.891 Personal history of nicotine dependence
CPT/HCPCS: 73610; Z7502